=== PATIENT | male | born 1965 | race African-American/Black ===

== ENCOUNTER 2017-11-11 02:25 | Emergency (ER) | payer SELFPAY ==
[2017-11-11] MEDS ORDERED: AMOXICILLIN TR/POT CLAVULANATE 500-125 MG TAB PO ONE (04:15)
--- NOTE | 2017-11-11 04:21 | ER Document Report ---
ED General - General Time Seen by Provider: 11/11/17 03:56 Mode of Arrival: Ambulatory Information source: Patient - HPI Notes: Patient is a 51-year-old smoker presents with a 3 day history of pharyngitis and mild hoarseness. The patient has slight pain when he swallows but denies any difficulty swallowing. The patient reports no chest pain or difficulty breathing. He denies any fever or chills. He reports a mild smoker's cough. He denies any neck stiffness. The patient questions some allergic response related to bedbugs which bit him on the arms 3 days ago, but he states he itching on the arms is improved. He denies any toothache. Past Medical History - General Information source: Patient - Social History Smoking Status: Current Every Day Smoker Frequency of alcohol use: None Drug Abuse: None Lives with: Family Family History: Reviewed & Not Pertinent Review of Systems - Review of Systems Notes: REVIEW OF SYSTEMS: CONSTITUTIONAL : Denies fever, chills, or sweats. Denies recent illness. EENT: Denies eye, ear, or mouth pain or symptoms. Denies nasal or sinus congestion or discharge. Denies throat, tongue, or mouth swelling or difficulty swallowing. Mild pain with swallowing. CARDIOVASCULAR: Denies chest pain. Denies palpitations or racing or irregular heart beat. Denies ankle edema. RESPIRATORY: Denies shortness of breath, difficulty breathing, or wheezing. GASTROINTESTINAL: Denies abdominal pain or distention. Denies nausea, vomiting , or diarrhea. Denies blood in vomitus, stools, or per rectum. Denies black, tarry stools. Denies constipation. GENITOURINARY: Denies difficulty urinating, painful urination, burning, frequency, blood in urine, or discharge. MUSCULOSKELETAL: Denies back or neck pain or stiffness. Denies joint pain or swelling. SKIN: Denies rash, lesions or sores. HEMATOLOGIC : Denies easy bruising or bleeding. LYMPHATIC: Denies swollen, enlarged glands. NEUROLOGICAL: Denies confusion or altered mental status. Denies passing out or loss of consciousness. Denies dizziness or lightheadedness. Denies headache. Denies weakness or paralysis or loss of use of either side. Denies problems with gait or speech. Denies sensory loss, numbness, or tingling. Denies seizures. PSYCHIATRIC: Denies anxiety or stress. Denies depression, suicidal ideation, or homicidal ideation. ALL OTHER SYSTEMS REVIEWED AND NEGATIVE. Dictation was performed using [employer] voice recognition software Physical Exam - Notes Notes: PHYSICAL EXAMINATION: GENERAL: Well-appearing, well-nourished and in no acute distress. HEAD: Atraumatic, normocephalic. EYES: Pupils equal round and reactive to light, extraocular movements intact, sclera anicteric, conjunctiva are normal. ENT: Nares patent, oropharynx without exudates. Moist mucous membranes. Mild tonsillar erythema. No abscess. Posterior pharynx otherwise clear. No edema or uvular enlargement. NECK: Normal range of motion, supple without lymphadenopathy. Trachea midline. LUNGS: Breath sounds clear to auscultation bilaterally and equal. No wheezes rales or rhonchi. HEART: Regular rate and rhythm without murmurs ABDOMEN: Soft, nontender, nondistended abdomen. No guarding, no rebound. No masses appreciated. Musculoskeletal: Normal range of motion, no pitting or edema. No cyanosis. NEUROLOGICAL: Cranial nerves grossly intact. Normal speech, normal gait. Normal sensory, motor exams PSYCH: Normal mood, normal affect. SKIN: Warm, Dry, normal turgor. minimal dermatitis noted on the arms. No cellulitis or abscess. Course - Re-evaluation Re-evalutation: 11/11/17 05:54 Soft tissue neck was negative. Strep test was negative. No evidence for abscess or epiglottitis. Patient was advised he may need a upper laryngeal pharyngoscopy to evaluate for possible lesions on the larynx and vocal cords if the discomfort persists, given his history of smoking. Patient had symptomatic relief related to Benadryl Pepcid and prednisone. We will also cover the patient with Augmentin for possible infectious etiology, although strep was negative. Discharge - Discharge Clinical Impression: Pharyngitis Qualifiers: Pharyngitis/tonsillitis etiology: unspecified etiology Qualified Code(s): J02.9 - Acute pharyngitis, unspecified Condition: Stable Disposition: HOME, SELF-CARE Instructions: Sore Throat ([facility]) Additional Instructions: Drink plenty of fluids. Take benadryl as directed for any itching and swelling. If sore throat continues, then you need a ENT Physician and have upper laryngopharyngoscopy with a camera performed. Prescriptions: Amox Tr/Potassium Clavulanate [Augmentin 875-125 Tablet] 1 tab PO BID 8 Days tablet Prednisone [Deltasone 10 mg Tablet] 10 mg PO ASDIR PRN #21 tablet PRN Reason:
--- NOTE | 2017-11-11 05:05 | RADIOLOGY REPORT (SQ) ---
EXAM DESCRIPTION: SOFT TISSUE NECK CLINICAL HISTORY: 51 years, Male, Soar throat. COMPARISON: None. NUMBER OF VIEWS: 2 LIMITATIONS: None. FINDINGS: Patent nasopharynx. Normal epiglottic silhouette. Mild disc desiccation between the C4 and C6 levels. IMPRESSION: No acute findings.
== END 2017-11-11 04:37 | disposition home or self-care (01) ==
LOC: ER 02:25
DX: J02.9 Acute pharyngitis, unspecified (principal); F17.200 Nicotine dependence, unspecified, uncomplicated
CPT/HCPCS: 70360; 87070; 87880; 99283

== ENCOUNTER 2017-11-26 10:44 | Inpatient (IN) | payer SELFPAY ==
[2017-11-26] MEDS ORDERED: ACETAMINOPHEN 325 MG TABLET PO ONE (11:28)
[2017-11-26] MEDS ORDERED: NORMAL SALINE 1000 ML 1,000 ML IV ONE (11:28)
[2017-11-26] MEDS ORDERED: PIPERACILLIN/TAZOBACTAM 4.5 GM VIAL IV ONE (11:28)
--- NOTE | 2017-11-26 11:30 | ER Document Report ---
ED Medical Screen (RME) - General Chief Complaint: Abdominal Pain Stated Complaint: COUGH Time Seen by Provider: 11/26/17 11:25 Notes: Patient states he has a history of hepatitis C as well as leukopenia. He states that he has had a cough and fever. Fever triage was 103 Fahrenheit. TRAVEL OUTSIDE OF THE [place] IN LAST 30 DAYS: No - Related Data Allergies/Adverse Reactions: No Known Allergies Allergy (Unverified 11/26/17 10:46) Past Medical History - Social History Chew tobacco use (# tins/day): No Frequency of alcohol use: None Drug Abuse: None Renal/ Medical History: Denies: Hx Peritoneal Dialysis Physical Exam - Vital signs Vitals: Temp Pulse Resp BP Pulse Ox 103.0 F H 96 24 H 131/64 H 96 11/26/17 11:07 11/26/17 11:07 11/26/17 11:07 11/26/17 11:07 11/26/17 11:07 Course - Vital Signs Vital signs: Temp Pulse Resp BP Pulse Ox 103.0 F H 96 24 H 131/64 H 96 11/26/17 11:07 11/26/17 11:07 11/26/17 11:07 11/26/17 11:07 11/26/17 11:07
--- NOTE | 2017-11-26 12:24 | RADIOLOGY REPORT (SQ) ---
EXAM DESCRIPTION: CHEST 2 VIEWS COMPLETED DATE/TIME: 11/26/2017 12:14 pm REASON FOR STUDY: cough/fever COMPARISON: None. EXAM PARAMETERS: NUMBER OF VIEWS: two views TECHNIQUE: Digital Frontal and Lateral radiographic views of the chest acquired. RADIATION DOSE: NA LIMITATIONS: none FINDINGS: LUNGS AND PLEURA: Right upper lobe infiltrate. Left lung clear. No pleural effusion. No pneumothorax. MEDIASTINUM AND HILAR STRUCTURES: No masses or contour abnormalities. HEART AND VASCULAR STRUCTURES: Heart normal size. No evidence for failure. BONES: No acute findings. HARDWARE: None in the chest. OTHER: No other significant finding. IMPRESSION: RIGHT UPPER LOBE INFILTRATE CONSISTENT WITH PNEUMONIA. TECHNICAL DOCUMENTATION: JOB ID: [id number] [employer]- All Rights Reserved Reading location - IP/workstation name: [email or web address]
[2017-11-26] MEDS ORDERED: IPRATROPIUM/ALBUTEROL 0.5-2.5 MG/3 ML AMPUL NEB ONE (12:28)
--- NOTE | 2017-11-26 12:29 | ER Document Report ---
ED General - General Chief Complaint: Abdominal Pain Stated Complaint: COUGH Time Seen by Provider: 11/26/17 11:25 Mode of Arrival: Ambulatory Information source: Patient, Relative - TRAVEL OUTSIDE OF THE [place] IN LAST 30 DAYS: No - HPI Notes: 51-year-old male with a history of hepatitis C presents today with complaints of a fever, nausea vomiting, diarrhea and right upper chest wall pain that started 2 days ago. Patient reports that he is here to [place], only moved here 2 weeks ago. Patient does not follow with a primary care provider. That time, nothing makes better. Has not tried any [id number] medications. Patient states he had a similar episode roughly 5 years ago when he was in [place], states that his "white count was low and he required some IV antibiotics to get him back to baseline". Drinking but reports decreased appetite. Denies any coffee-ground emesis or melena. denies fevers, chills, chest pain,palpitations, shortness of breath, dyspnea, nausea, vomiting, diarrhea, abdominal pain, hematuria,blurred vision, double vision, loss of vision, speech changes, LH, dizziness, syncope, headaches, wheezing, ST , URI, neck pain, weakness, bowel or bladder dysfunction, saddle anesthesia, numbness or tingling in bilateral upper or lower extremities equally, muscle paralysis, weakness in bilateral upper or lower extremities equally or rash. Denies IV drug use. - Related Data Allergies/Adverse Reactions: No Known Allergies Allergy (Unverified 11/26/17 10:46) Past Medical History - General Information source: Patient - Social History Smoking Status: Current Every Day Smoker Chew tobacco use (# tins/day): No Frequency of alcohol use: None Drug Abuse: None Family History: Reviewed & Not Pertinent Patient has suicidal ideation: No Patient has homicidal ideation: No Renal/ Medical History: Denies: Hx Peritoneal Dialysis Review of Systems - Review of Systems Notes: REVIEW OF SYSTEMS: CONSTITUTIONAL : +fever, chills, or sweats. Denies recent illness. EENT: Denies eye, ear, throat, or mouth pain or symptoms. Denies nasal or sinus congestion or discharge. Denies throat, tongue, or mouth swelling or difficulty swallowing. CARDIOVASCULAR: Denies chest pain. Denies palpitations or racing or irregular heart beat. Denies ankle edema. RESPIRATORY: Denies cough, cold, or chest congestion. Denies shortness of breath, difficulty breathing, or wheezing. GASTROINTESTINAL: Denies abdominal pain or distention. Reports nausea, vomiting, or diarrhea. Denies blood in vomitus, stools, or per rectum. Denies black, tarry stools. Denies constipation. GENITOURINARY: Denies difficulty urinating, painful urination, burning, frequency, blood in urine, or discharge. MUSCULOSKELETAL: Denies back or neck pain or stiffness. Denies joint pain or swelling. SKIN: Denies rash, lesions or sores. HEMATOLOGIC : Denies easy bruising or bleeding. LYMPHATIC: Denies swollen, enlarged glands. NEUROLOGICAL: Denies confusion or altered mental status. Denies passing out or loss of consciousness. Denies dizziness or lightheadedness. Denies headache. Denies weakness or paralysis or loss of use of either side. Denies problems with gait or speech. Denies sensory loss, numbness, or tingling. Denies seizures. PSYCHIATRIC: Denies anxiety or stress. Denies depression, suicidal ideation, or homicidal ideation. ALL OTHER SYSTEMS REVIEWED AND NEGATIVE. Dictation was performed using [employer] voice recognition software PHYSICAL EXAMINATION: GENERAL: Well-appearing, well-nourished and in no acute distress. HEAD: Atraumatic, normocephalic. EYES: Pupils equal round and reactive to light, extraocular movements intact, sclera anicteric, conjunctiva are normal. ENT: Nares patent, oropharynx clear without exudates. Moist mucous membranes. NECK: Normal range of motion, supple without lymphadenopathy LUNGS: Breath sounds clear to auscultation bilaterally and equal. No wheezes rales or rhonchi. HEART: Regular rate and rhythm without murmurs ABDOMEN: Soft, nondistended abdomen. Generalized abdominal pain. no guarding, no rebound. No masses appreciated. No CVA tenderness appreciated bilaterally Musculoskeletal: Normal range of motion, no pitting or edema. No cyanosis. NEUROLOGICAL: Cranial nerves grossly intact. Normal speech, normal gait. Normal sensory, motor exams PSYCH: Normal mood, normal affect. SKIN: Warm, Dry, normal turgor, no rashes or lesions noted. Physical Exam - Vital signs Vitals: Temp Pulse Resp BP Pulse Ox 103.0 F H 96 24 H 131/64 H 96 11/26/17 11:07 11/26/17 11:07 11/26/17 11:07 11/26/17 11:07 11/26/17 11:07 Course - Re-evaluation Re-evalutation: 11/26/17 19:09 51-year-old male presents today with complaints of fever with GI symptoms. Patient's CBC showed a neutropenia 0.8 with anemia, CMP negative for renal or hepatic dysfunction, no electrolyte disturbances noted. Chest x-ray showed urinalysis negative unremarkable. Cardiac enzymes unremarkable, EKG negative for STEMI, nonspecific ST segment findings. Patient given verbal consent to check for HIV due to sudden onset neutropenia. Patient denies any history of cancer or leukocytosis. CT abdomen pelvis with IV contrast shows the patient has splenomegaly, no hepatomegaly noted. CMP negative for any hepatic impairment renal impairment. Electrolytes do not show any disturbances. Urinalysis with slight hematuria. Patient adamantly denies any IV drug use. Patient states he acquired hepatitis C from a plasma transfusion "many years ago ". Currently unsure of reason for neutropenia at this time, ABG ordered to assess the patient needs steroids. Broad-spectrum antibiotics given the IV. Fever reduced to 98.6 on reevaluation, vitals stable. Patient is not in any distress and in a good mood consulted with Dr. Caroline Alexander, attending hospitalist regarding pertinent laboratory, diagnostic and clinical findings. Initially refused admission due to the fact patient had hepatitis C with neutropenia due to gastroenterology not being transportation manager today. Consulted with Dr. Elizabeth Talbert, rolloff truck driver, who states that the hospital is capable of admitting neutropenia with fever. Consulted with Dr. Lyla Zavala, ER attending regarding refusal for admission. She denies being to discuss case again with the hospitalist since his hospital had full capabilities admit inpatient. Consulted with Dr. Caroline Alexander again, who did review case herself, did accept patient was accepted by Dr. Colton Bazzi, hospitalist to medical floor for IV antibiotics with Dr. Talbert consulting. - Vital Signs Vital signs: Temp Pulse Resp BP Pulse Ox 103.0 F H 96 24 H 131/64 H 96 11/26/17 11:07 11/26/17 11:07 11/26/17 11:07 11/26/17 11:07 11/26/17 11:07 - Laboratory Result Diagrams: 11/26/17 13:30 11/26/17 13:30 Laboratory results interpreted by me: 11/26/17 11/26/17 11/26/17 11:52 13:30 13:30 WBC 0.8 L* RBC 3.22 L Hgb 8.8 L Hct 25.0 L MCV 77 L RDW 16.5 H Plt Count 137 L Seg Neutrophils % 17.1 L Monocytes % 36.4 H Absolute Neutrophils 0.1 L Absolute Lymphocytes 0.4 L VBG pH VBG pCO2 Sodium 135.6 L Glucose 111 H Total Protein 6.2 L Albumin 2.9 L Urine Blood SMALL H Urine Urobilinogen 4.0 H 11/26/17 13:30 WBC RBC Hgb Hct MCV RDW Plt Count Seg Neutrophils % Monocytes % Absolute Neutrophils Absolute Lymphocytes VBG pH 7.48 H VBG pCO2 29.8 L Sodium Glucose Total Protein Albumin Urine Blood Urine Urobilinogen - EKG Interpretation by Me EKG shows normal: Sinus rhythm Rate: Normal Rhythm: NSR - bmp 80 When compared to previous EKG there are: Previous EKG unavailable Discharge - Discharge Clinical Impression: Neutropenia, Right upper lobe pneumonia, Splenomegaly Condition: Good Disposition: ADMITTED INPATIENT Admitting Provider: Hospitalist - Dr. Bazzi Unit Admitted: Medical Floor
[2017-11-26 13:45] LABS: VENOUS BLOOD BASE EXCESS -0.6 mmol/L; VENOUS BLOOD HCO3 21.8 mmol/L (20-32); VENOUS BLOOD PCO2 29.8 mmHg (35-63); VENOUS BLOOD PH 7.48 (7.30-7.42)
[2017-11-26 13:49] LABS: ABSOLUTE LYMPHOCYTES (AUTO) 0.4 10^3/uL (0.5-4.7); ABSOLUTE MONOCYTES (AUTO) 0.3 10^3/uL (0.1-1.4); ABSOLUTE NEUT (AUTO) 0.1 10^3/uL (1.7-8.2); BASOPHILS % (AUTO) 0.6 % (0-2); EOSINOPHILS % (AUTO) 3.9 % (0-6); HEMOGLOBIN 8.8 g/dL (13.5-17.0); MEAN CORPUSCULAR HEMOGLOBIN 27.2 pg (27.0-33.4); MEAN CORPUSCULAR HGB CONC 35.1 g/dL (32.0-36.0); MEAN CORPUSCULAR VOLUME 77 fl (80-97); MONOCYTES % (AUTO) 36.4 % (3-13); PLATELET COUNT 137 10^3/uL (150-450); RED BLOOD COUNT 3.22 10^6/uL (4.35-5.55); RED CELL DISTRIBUTION WIDTH 16.5 % (11.5-14.0); SEGMENTED NEUTROPHILS % (AUTO) 17.1 % (42-78); TOTAL CELLS COUNTED % (AUTO) 100 %
[2017-11-26 14:00] LABS: WHITE BLOOD COUNT 0.8 10^3/uL (4.0-10.5)
[2017-11-26 14:04] LABS: ALANINE AMINOTRANSFERASE 32 U/L (21-72); ALBUMIN 2.9 g/dL (3.5-5.0); ALKALINE PHOSPHATASE 50 U/L (38-126); ANION GAP 9 (5-19); ASPARTATE AMINO TRANSFERASE 22 U/L (17-59); BILIRUBIN,DIRECT 0.1 mg/dL (0.0-0.4); BILIRUBIN,TOTAL 0.3 mg/dL (0.2-1.3); BLOOD UREA NITROGEN 10 mg/dL (7-20); CALCIUM 8.5 mg/dL (8.4-10.2); CARBON DIOXIDE 22 mmol/L (22-30); CHLORIDE 105 mmol/L (98-107); GLUCOSE 111 mg/dL (75-110); POTASSIUM 3.8 mmol/L (3.6-5.0); SODIUM 135.6 mmol/L (137-145); TOTAL PROTEIN 6.2 g/dL (6.3-8.2)
[2017-11-26 14:09] LABS: ANISOCYTOSIS 1+; HYPOCHROMASIA SLIGHT; PLATELET COMMENT DECREASED; POIKILOCYTOSIS 1+; TEAR DROP CELLS 1+
[2017-11-26 14:26] LABS: APPEARANCE,URINE TURBID; BILIRUBIN,URINE NEGATIVE (NEGATIVE); COLOR,URINE YELLOW; GLUCOSE, URINE NEGATIVE (NEGATIVE); KETONES,URINE NEGATIVE (NEGATIVE); LEUKOCYTE ESTERASE,URINE NEGATIVE (NEGATIVE); NITRITE,URINE NEGATIVE (NEGATIVE); PROTEIN,URINE NEGATIVE (NEGATIVE); URINE SPECIFIC GRAVITY 1.021
[2017-11-26] MEDS ORDERED: VANCOMYCIN HCL INJ 1000 MG VIAL IV ONE (14:41)
[2017-11-26 15:27] LABS: CREATINE KINASE MB 0.42 ng/mL (<4.55)
[2017-11-26 15:29] LABS: TROPONIN I < 0.012 ng/mL
[2017-11-26] MEDS ORDERED: SULFAMETHOXAZOLE/TRIMETHOPRIM 800-160 MG TABLET PO ONE (15:38)
--- NOTE | 2017-11-26 16:20 | RADIOLOGY REPORT (SQ) ---
EXAM DESCRIPTION: CT ABD/PELVIS WITH IV ONLY COMPLETED DATE/TIME: 11/26/2017 4:01 pm REASON FOR STUDY: LUQ and RUQ abd pain, +fever COMPARISON: None. TECHNIQUE: CT scan of the abdomen and pelvis performed using helical scanning technique with dynamic intravenous contrast injection. No oral contrast. Images reviewed with lung, soft tissue, and bone windows. Reconstructed coronal and sagittal MPR images reviewed. Delayed images for evaluation of the urinary system also acquired. All images stored on PACS. All CT scanners at this facility use dose modulation, iterative reconstruction, and/or weight based d osing when appropriate to reduce radiation dose to as low as reasonably achievable (ALARA). [facility]: Dose Right [facility]: CareDose [facility]: Dose Right [facility]: Teradose 4D [facility]: Lynk CONTRAST TYPE AND DOSE: contrast/concentration: Isovue 370.00 mg/ml; Total Contrast Delivered: 79.0 ml; Total Saline Delivered: 43.0 ml RENAL FUNCTION: BUN 10 creatinine 0.6. RADIATION DOSE: CT Rad equipment meets quality standard of care and radiation dose reduction techniq ues were employed. CTDIvol: 5.4 - 6.7 mGy. DLP: 674 mGy-cm.. LIMITATIONS: None. FINDINGS: LOWER CHEST: 3 mm nodule in the right lower lobe. LIVER: Normal size. No masses. No dilated ducts. SPLEEN: Splenomegaly. Craniocaudal measurement 18 cm and AP measurement 17 cm. No focal lesions. PANCREAS: No masses. No significant calcifications. No adjacent inflammation or peripancreatic fluid collections. Pancreatic duct not dilated. GALLBLADDER: No identified stones by CT criteria. No inflammatory changes to suggest cholecystitis. ADRENAL GLANDS: No significant masses or asymmetry. RIGHT KIDNEY AND URETER: No solid masses. No significant calcifications. No hydronephrosis or hyd roureter. LEFT KIDNEY AND URETER: No solid masses. No significant calcifications. No hydronephrosis or hydr oureter. AORTA AND VESSELS: No aneurysm. No dissection. Renal arteries, SMA, celiac without stenosis. RETROPERITONEUM: No retroperitoneal adenopathy, hemorrhage or masses. BOWEL AND PERITONEAL CAVITY: No masses or inflammatory changes. No free fluid or peritoneal masses. APPENDIX: Normal. PELVIS: No mass. No free fluid. Normal bladder. ABDOMINAL WALL: No masses. No hernias. BONES: No significant or acute findings. OTHER: No other significant finding. IMPRESSION: 1. MARKED SPLENOMEGALY. NO FOCAL LESIONS. NO OTHER SIGNIFICANT OR ACUTE FINDING IN THE ABDOMEN OR P MAHNAZ ON CT SCAN WITH IV CONTRAST. 2. 3 MM NODULE IN THE RIGHT LOWER LOBE. FOLLOW-UP CLINICALLY INDICATED. COMMENT: [place] CRITERIA FOR FOLLOW-UP OF PULMONARY NODULES Incidentally detected new nodules in persons 35 or older. HIGH RISK: History of smoking or other known risk factors. <6mm single solid nodule: LOW RISK: no routine followup. HIGH RISK: optional CT 12 mo. TECHNICAL DOCUMENTATION: JOB ID: [id number] Quality ID # [id number]: Final reports with documentation of one or more dose reduction techniques (e.g., Au tomated exposure control, adjustment of the mA and/or kV according to patient size, use of iterative reconstruction technique) 2010 [employer]- All Rights Reserved Reading location - IP/workstation name: [email or web address]
[2017-11-26] MEDS ORDERED: ONDANSETRON HCL INJ/PF 4 MG/2 ML SDV IV PRN (18:11)
[2017-11-26] MEDS ORDERED: IPRATROPIUM/ALBUTEROL 0.5-2.5 MG/3 ML AMPUL NEB PRN (18:11)
[2017-11-26] MEDS ORDERED: VANCOMYCIN HCL 0 MG in DEXTROSE 5%-WATER 250 ML IV NR (18:15)
--- NOTE | 2017-11-26 18:37 | PDOC H&P ---
History of Present Illness Admission Date/PCP: 11/26/17 17:44 Patient complains of: Cough and fever for 4 days History of Present Illness: MARY SCHROEDER is a 51 year old male with a known past history of hepatitis C untreated Presented to the ED with a four-day history of fever chills night sweats Upon evaluation in the ED patient was diagnosed of severe neutropenia with a white blood count of 0.8 and ANC of 13; Chest x-ray showed a right upper lobe infiltrate Patient in the ED was treated with vancomycin and Zosyn and Bactrim Hospitalist hospitalist service was called for admission Past Medical History GI Medical History: Reports: Hepatitis - Hepatitis C Hematology: Reports: Neutropenia Infectious Medical History: Reports: Hepatitis C Past Surgical History Past Surgical History: Reports: None Social History Smoking Status: Current Every Day Smoker - Advance Directive Resuscitation Status: Full Code Surrogate healthcare decision maker:: Family History Family History: None, Reviewed & Not Pertinent Parental Family History Reviewed: Yes Children Family History Reviewed: Yes Sibling(s) Family History Reviewed.: Yes Medication/Allergy Home Medications: No Home Medications 11/26/17 Allergies/Adverse Reactions: No Known Allergies Allergy (Unverified 11/26/17 10:46) Review of Systems Constitutional: PRESENT: as per HPI, chills, fatigue, fever(s), night sweats, weakness Eyes: ABSENT: visual disturbances Ears: ABSENT: hearing changes Cardiovascular: ABSENT: chest pain, dyspnea on exertion, edema, orthropnea, palpitations Respiratory: PRESENT: as per HPI, cough, sputum Gastrointestinal: ABSENT: abdominal pain, constipation, diarrhea, hematemesis, hematochezia, nausea, vomiting Genitourinary: ABSENT: dysuria, hematuria Musculoskeletal: ABSENT: joint swelling Integumentary: ABSENT: rash, wounds Neurological: ABSENT: abnormal gait, abnormal speech, confusion, dizziness, focal weakness, syncope Psychiatric: ABSENT: anxiety, depression, homidical ideation, suicidal ideation Endocrine: ABSENT: cold intolerance, heat intolerance, polydipsia, polyuria Hematologic/Lymphatic: ABSENT: easy bleeding, easy bruising Allergic/Immunologic: ABSENT: as per HPI, seasonal rhinorrhea, other Physical Exam Vital Signs: Temp Pulse Resp BP Pulse Ox 103.0 F H 96 24 H 131/64 H 96 11/26/17 11:07 11/26/17 11:07 11/26/17 11:07 11/26/17 11:07 11/26/17 11:07 General appearance: PRESENT: no acute distress, thin, well-developed Head exam: PRESENT: atraumatic, normocephalic Eye exam: PRESENT: conjunctiva pink, EOMI, PERRLA. ABSENT: scleral icterus Ear exam: PRESENT: normal external ear exam Neck exam: ABSENT: carotid bruit, JVD, lymphadenopathy, thyromegaly Respiratory exam: PRESENT: clear to auscultation matias Cardiovascular exam: PRESENT: RRR. ABSENT: diastolic murmur, rubs, systolic murmur Pulses: PRESENT: normal dorsalis pedis pul Vascular exam: PRESENT: normal capillary refill GI/Abdominal exam: PRESENT: organolmegaly - spleen palpable below left costal margin Rectal exam: PRESENT: deferred Extremities exam: PRESENT: full ROM. ABSENT: calf tenderness, clubbing, pedal edema Musculoskeletal exam: ABSENT: ambulatory, deformity, dislocation, full ROM, normal inspection, tenderness, other Neurological exam: PRESENT: alert, awake, oriented to person, oriented to place , oriented to time, oriented to situation, CN II-XII grossly intact. ABSENT: motor sensory deficit Psychiatric exam: PRESENT: appropriate affect, normal mood Skin exam: PRESENT: dry, intact, warm. ABSENT: cyanosis, rash Results Laboratory Results: 11/11/17 11/26/17 11/26/17 03:20 13:30 13:30 WBC 0.8 L* Hgb 8.8 L Hct 25.0 L Plt Count 137 L Seg Neutrophils % 17.1 L Sodium 135.6 L Potassium 3.8 Chloride 105 Carbon Dioxide 22 BUN 10 Creatinine 0.60 Lactic Acid AST 22 ALT 32 Alkaline Phosphatase 50 Troponin I Lipase HIV 1&2 Antibody Group A Strep Rapid NEGATIVE 11/26/17 11/26/17 11/26/17 13:30 13:30 13:30 WBC Hgb Hct Plt Count Seg Neutrophils % Sodium Potassium Chloride Carbon Dioxide BUN Creatinine Lactic Acid AST ALT Alkaline Phosphatase Troponin I < 0.012 Lipase 46.1 HIV 1&2 Antibody NEGATIVE Group A Strep Rapid 11/26/17 14:46 WBC Hgb Hct Plt Count Seg Neutrophils % Sodium Potassium Chloride Carbon Dioxide BUN Creatinine Lactic Acid 0.9 AST ALT Alkaline Phosphatase Troponin I Lipase HIV 1&2 Antibody Group A Strep Rapid Impressions: Chest X-Ray 11/26/17 11:28 IMPRESSION: RIGHT UPPER LOBE INFILTRATE CONSISTENT WITH PNEUMONIA. Abdomen/Pelvis CT 11/26/17 14:54 IMPRESSION: 1. MARKED SPLENOMEGALY. NO FOCAL LESIONS. NO OTHER SIGNIFICANT OR ACUTE FINDING IN THE ABDOMEN OR PELVIS ON CT SCAN WITH IV CONTRAST. 2. 3 MM NODULE IN THE RIGHT LOWER LOBE. FOLLOW-UP CLINICALLY INDICATED. Assessment & Plan - Diagnosis (1) Pancytopenia Is this a current diagnosis for this admission?: Yes (2) Splenomegaly Is this a current diagnosis for this admission?: Yes (3) Hx of hepatitis C Is this a current diagnosis for this admission?: Yes (4) Neutropenia Is this a current diagnosis for this admission?: Yes (5) Right upper lobe pneumonia Is this a current diagnosis for this admission?: Yes - Time Time Spent with patient: Patient will be placed on neutropenic precautions Treatment with cefepime and vancomycin was initiated Dr. Thompson hematology consult will see the patient in a.m. Mechanical DVT prophylaxis was ordered We will hold Lovenox as the platelet count is only 130 Time Spent: 50 to 70 Minutes - Inpatient Certification Based on my medical assessment, after consideration of the patient's comorbidities, presenting symptoms, or acuity I expect that the services needed warrant INPATIENT care.: Yes I certify that my determination is in accordance with my understanding of Medicare's requirements for reasonable and necessary INPATIENT services [42 CFR 412.3e].: Yes Medical Necessity: Need For IV Fluids, Need for IV Antibiotics
[2017-11-26] MEDS: ACETAMINOPHEN 325 MG TABLET PO PRN (19:57)
[2017-11-26] MEDS ORDERED: VANCOMYCIN HCL 1,250 MG in DEXTROSE 5%-WATER 250 ML IV SCH ×2 (20:00→22:00)
[2017-11-26] MEDS: NORMAL SALINE 1000 ML 1,000 ML IV PRN (20:55)
--- NOTE | 2017-11-26 21:08 | EKG REPORT ---
SEVERITY:- NORMAL ECG - SINUS RHYTHM : Confirmed by: Gurmeet Noble 26-Nov-2017 21:07:30
[2017-11-26 21:31] LABS: ARTERIAL BLOOD BASE EXCESS -1.6 mmol/L; ARTERIAL BLOOD HCO3 21.1 mmol/L (20-26); ARTERIAL BLOOD O2 SATURATION 83.2 % (94-98); ARTERIAL BLOOD PCO2 29.9 mmHg (35-45); ARTERIAL BLOOD PH 7.47 (7.35-7.45); ARTERIAL BLOOD PO2 43.7 mmHg (80-100)
[2017-11-26 21:32] LABS: ARTERIAL BLOOD FIO2 21%
[2017-11-26] MEDS ORDERED: CEFEPIME 2 GM/D5W RTU 2 GM/50 ML RTUPB IV SCH (22:00)
[2017-11-26] MEDS ORDERED: VANCOMYCIN HCL 1,250 MG in DEXTROSE 5%-WATER 250 ML IV ONE (22:00)
[2017-11-26] MEDS: FAMOTIDINE 20 MG TABLET PO SCH (22:05)
[2017-11-26] MEDS: CEFEPIME HCL 2 GM in NORMAL SALINE 100 ML IV SCH (22:05)
[2017-11-27] MEDS: VANCOMYCIN HCL 1,250 MG in DEXTROSE 5%-WATER 250 ML IV SCH ×3 (03:11→21:00)
[2017-11-27 05:04] LABS: ABSOLUTE RETICS # 0.043 10^6/uL (0.028-0.122); HEMATOCRIT 23.8 % (37.9-51.0); HEMOGLOBIN 8.3 g/dL (13.5-17.0); MEAN CORPUSCULAR HGB CONC 34.9 g/dL (32.0-36.0); MEAN CORPUSCULAR VOLUME 77 fl (80-97); PLATELET COUNT 132 10^3/uL (150-450); RED BLOOD COUNT 3.07 10^6/uL (4.35-5.55); RED CELL DISTRIBUTION WIDTH 16.4 % (11.5-14.0); RETICULOCYTE COUNT (AUTO) 1.41 % (0.66-2.85)
[2017-11-27 05:33] LABS: FREE T4 (FREE THYROXINE) 1.27 ng/dL (0.78-2.19)
[2017-11-27 05:46] LABS: THYROID STIMULATING HORMONE 2.2 uIU/mL (0.47-4.68)
[2017-11-27 05:52] LABS: ABSOLUTE LYMPHOCYTES# (MANUAL) 0.2 10^3/uL (0.5-4.7); ABSOLUTE MONOCYTES # (MANUAL) 0.3 10^3/uL (0.1-1.4); ABSOLUTE NEUTROPHILS# (MANUAL) 0.1 10^3/uL (1.7-8.2); BAND NEUTROPHILS % (MANUAL) 6 % (3-5); BASOPHILS % (MANUAL) 0 % (0-2); EOSINOPHILS % (MANUAL) 10 % (0-6); LYMPHOCYTES % (MANUAL) 34 % (13-45); SEGMENTED NEUTROPHILS % (MAN) 4 % (42-78); TOTAL CELLS COUNTED 50
[2017-11-27 05:55] LABS: PLATELET CLUMPS PRESENT; PLATELET COMMENT DECREASED
[2017-11-27 05:57] LABS: ANISOCYTOSIS 1+; HYPOCHROMASIA 1+; POLYCHROMASIA SLIGHT
[2017-11-27 06:00] LABS: MONOCYTES % (MANUAL) 46 % (3-13)
[2017-11-27 06:26] LABS: IRON(TIBC) < 10.1 ug/dL (49-181)
[2017-11-27 06:45] LABS: WHITE BLOOD COUNT 0.7 10^3/uL (4.0-10.5)
--- NOTE | 2017-11-27 08:37 | PDOC CONSULTATION ---
Consultation Consult Date: 11/27/17 Consult reason:: Hematology/Oncology consultation was requested for patient with pancytopenia and neutropenic fever History of Present Illness Admission Date/PCP: 11/26/17 17:44 History of Present Illness: MARY SCHROEDER is a 51 year old male who states that he has had neutropenia since he was diagnosed with HCV 20 years ago. He is unsure what his baseline WBC is, but states that he underwent bone marrow biopsy about 2 years ago for the same. He is unsure what was found on the bone marrow, but it left him with a large lump in his hip. He has never had pneumonia before. He would like to be treated for his HCV, but states that he cannot afford it. He has recently re -located here from [place]. He has not established with any physicians in the area and states that he is unsure what type of HCV he has or if it can be treated with the medication. He presented to the ED after a 4 day history of drenching night sweats and cough. He has some chest pain and dyspnea. He has had similar episodes before and states that he can tell when "his hepatitis is acting up." Today, he states that he feels no better since being admitted. He is having bone pain and feels better when he is up walking around. He is getting hungry during the day and needs to eat a snack. Past Medical History GI Medical History: Reports: Hepatitis - Hepatitis C Hematology: Reports: Neutropenia Infectious Medical History: Reports: Hepatitis C Past Surgical History Past Surgical History: Reports: None Social History Information Source: Patient Lives with: Spouse/Significant other Smoking Status: Current Every Day Smoker Cigarettes Packs Per Day: 1 Number of Years Smokin Last Time Smoked: 11/25/17 Frequency of Alcohol Use: None Hx Recreational Drug Use: No Drugs: None Hx Prescription Drug Abuse: No Past Social History Note: 5 kids. 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 - Advance Directive Resuscitation Status: Full Code Family History Parental Family History Reviewed: Yes - Mother healthy working in the . Father is unknwon Children Family History Reviewed: Yes Sibling(s) Family History Reviewed.: No Medication/Allergy Home Medications: No Home Medications 11/26/17 Allergies/Adverse Reactions: No Known Allergies Allergy (Unverified 11/26/17 10:46) Review of Systems Constitutional: PRESENT: chills, fever(s), night sweats Eyes: ABSENT: visual disturbances Ears: ABSENT: hearing changes Nose, Mouth, and Throat: PRESENT: sore throat Cardiovascular: PRESENT: chest pain, dyspnea on exertion Respiratory: PRESENT: cough, dyspnea. ABSENT: hemoptysis Gastrointestinal: ABSENT: constipation, diarrhea, nausea, vomiting Musculoskeletal: PRESENT: other - Bone pain Integumentary: ABSENT: rash Neurological: ABSENT: confusion, numbness, weakness Psychiatric: ABSENT: anxiety, depression Hematologic/Lymphatic: ABSENT: lymphadenopathy Physical Exam Vital Signs: Temp Pulse Resp BP Pulse Ox 99.0 F 92 19 113/62 100 11/27/17 07:39 11/27/17 07:39 11/27/17 07:39 11/27/17 07:39 11/27/17 07:39 Intake & Output 11/26/17 11/27/17 11/28/17 06:59 06:59 06:59 Intake Total 1480 Output Total 700 Balance 780 Weight 72.7 kg General appearance: PRESENT: no acute distress, thin Exam: 51 year old male. is at bedside. Head exam: PRESENT: atraumatic Eye exam: PRESENT: PERRLA Ear exam: PRESENT: normal external ear exam Mouth exam: PRESENT: tongue midline Neck exam: ABSENT: lymphadenopathy, tenderness Respiratory exam: PRESENT: clear to auscultation matias Cardiovascular exam: PRESENT: RRR. ABSENT: systolic murmur Pulses: PRESENT: normal dorsalis pedis pul GI/Abdominal exam: PRESENT: organolmegaly - Spleen tip palpable., soft. ABSENT : tenderness Extremities exam: ABSENT: pedal edema Musculoskeletal exam: PRESENT: other - Walks without difficulty. No obvious abnormalities. Neurological exam: PRESENT: alert, awake, oriented to person, oriented to place , oriented to time, oriented to situation, normal gait Psychiatric exam: PRESENT: appropriate affect Focused psych exam: ABSENT: paranoid, pressured speech Skin exam: PRESENT: other - Large lipoma over right lateral hip. Results Laboratory Results: 11/27/17 04:48 11/26/17 11/27/17 11/27/17 21:19 04:48 04:48 WBC 0.7 L* RBC 3.07 L Hgb 8.3 L Hct 23.8 L MCV 77 L MCH 27.0 MCHC 34.9 RDW 16.4 H Plt Count 132 L Seg Neutrophils % Not Reportable Lymphocytes % Not Reportable Monocytes % Not Reportable Eosinophils % Not Reportable Basophils % Not Reportable Absolute Neutrophils Not Reportable Absolute Lymphocytes Not Reportable Absolute Monocytes Not Reportable Absolute Eosinophils Not Reportable Absolute Basophils Not Reportable Retic Count (auto) 1.41 Absolute Retic 0.043 Carbonic Acid 0.90 L HCO3/H2CO3 Ratio 23:1 ABG pH 7.47 H ABG pCO2 29.9 L ABG pO2 43.7 L ABG HCO3 21.1 ABG O2 Saturation 83.2 L ABG Base Excess -1.6 FiO2 21% Iron < 10.1 L TIBC 194 L % Saturation UNABLE TO CALCULATE Ferritin 273.00 Vitamin B12 167.0 L Folate 13.40 TSH Free T4 11/27/17 04:48 WBC RBC Hgb Hct MCV MCH MCHC RDW Plt Count Seg Neutrophils % Lymphocytes % Monocytes % Eosinophils % Basophils % Absolute Neutrophils Absolute Lymphocytes Absolute Monocytes Absolute Eosinophils Absolute Basophils Retic Count (auto) Absolute Retic Carbonic Acid HCO3/H2CO3 Ratio ABG pH ABG pCO2 ABG pO2 ABG HCO3 ABG O2 Saturation ABG Base Excess FiO2 Iron TIBC % Saturation Ferritin Vitamin B12 Folate TSH 2.20 Free T4 1.27 Impressions: Chest X-Ray 11/26/17 11:28 IMPRESSION: RIGHT UPPER LOBE INFILTRATE CONSISTENT WITH PNEUMONIA. Abdomen/Pelvis CT 11/26/17 14:54 IMPRESSION: 1. MARKED SPLENOMEGALY. NO FOCAL LESIONS. NO OTHER SIGNIFICANT OR ACUTE FINDING IN THE ABDOMEN OR PELVIS ON CT SCAN WITH IV CONTRAST. 2. 3 MM NODULE IN THE RIGHT LOWER LOBE. FOLLOW-UP CLINICALLY INDICATED. Status: Image reviewed by me Assessment & Plan - Diagnosis (1) Pancytopenia Is this a current diagnosis for this admission?: Yes Plan: Most likely due to HCV as well as VIt B12 deficiency. Agree with neutropenic precautions. OK for Lovenox as long as PLT > 50K (2) Hx of hepatitis C Is this a current diagnosis for this admission?: Yes Plan: HIV was negative. Await Hepatitis panel. Consider consulting GI for further evaluation of this and possible treatment. Patient is interested to see if there is a sp available to help cover the cost of treatment. (3) Right upper lobe pneumonia Is this a current diagnosis for this admission?: Yes Plan: Agree with Cefapime. He needs to be afebrile for at least 48 hours and preferably with ANC >1.0. Await blood cultures. (4) Vitamin B12 deficiency Is this a current diagnosis for this admission?: Yes Plan: I will start B12 injections. Vit B 12 deficiency can cause pancytopenia. Hopefully replacing this will help. - Plan Summary Plan Summary: Thank you for this consultation. I will be happy to follow him with you. Please feel free to call with any concerns.
[2017-11-27] MEDS: CEFEPIME HCL 2 GM in NORMAL SALINE 100 ML IV SCH ×2 (09:59→23:06)
[2017-11-27] MEDS: FAMOTIDINE 20 MG TABLET PO SCH ×2 (09:59→21:01)
[2017-11-27] MEDS: CYANOCOBALAMIN (VITAMIN B-12) INJ 1000 MCG/1 ML VIAL IM SCH (09:59)
[2017-11-27] MEDS: ACETAMINOPHEN 325 MG TABLET PO PRN (11:28)
[2017-11-27 12:28] LABS: PATH REVIEW PATHOLOGIST REVIEWED
[2017-11-27 12:28] LABS: PATH REVIEW PATHOLOGIST REVIEWED
[2017-11-27] MEDS: NORMAL SALINE 1000 ML 1,000 ML IV PRN (17:46)
--- NOTE | 2017-11-27 17:56 | PDOC PROGRESS REPORT ---
Subjective Progress Note for:: 11/27/17 Subjective:: Patient is complaining of generalized weakness otherwise has no specific complaints patient was admitted yesterday with pancytopenia, fever and pneumonia Patient had mentioned yesterday that he had bone marrow biopsy done 2 years ago Call was placed to hospital in [place] to obtain records and results bone marrow biopsy It was never performed Patient states now that it may have been down when he was a child about 40 years ago... He is ambulating in the hallway and appears quite comfortable in no respiratory distress Reason For Visit: PNEUMONIA, NEUTROPENIA, PANCYTOPENIA Physical Exam Vital Signs: Temp Pulse Resp BP Pulse Ox 98.0 F 79 19 117/63 100 11/27/17 15:43 11/27/17 15:43 11/27/17 15:43 11/27/17 15:43 11/27/17 15:43 Intake & Output 11/26/17 11/27/17 11/28/17 00:59 00:59 00:59 Intake Total 1240 861 Output Total 350 350 Balance 890 511 Weight 72.7 kg General appearance: PRESENT: no acute distress, thin, well-developed Head exam: PRESENT: atraumatic, normocephalic Eye exam: PRESENT: conjunctiva pink, EOMI, PERRLA. ABSENT: scleral icterus Neck exam: ABSENT: carotid bruit, JVD, lymphadenopathy, thyromegaly Respiratory exam: PRESENT: clear to auscultation matias Cardiovascular exam: PRESENT: RRR. ABSENT: diastolic murmur, rubs, systolic murmur Pulses: PRESENT: normal dorsalis pedis pul Vascular exam: PRESENT: normal capillary refill GI/Abdominal exam: PRESENT: organolmegaly - spleen palpable below left costal margin Extremities exam: PRESENT: full ROM. ABSENT: calf tenderness, clubbing, pedal edema Musculoskeletal exam: ABSENT: ambulatory, deformity, dislocation, full ROM, normal inspection, tenderness, other Neurological exam: PRESENT: alert, awake, oriented to person, oriented to place , oriented to time, oriented to situation, CN II-XII grossly intact. ABSENT: motor sensory deficit Results Laboratory Results: 11/27/17 04:48 11/26/17 11/27/17 11/27/17 21:19 04:48 04:48 WBC 0.7 L* RBC 3.07 L Hgb 8.3 L Hct 23.8 L MCV 77 L MCH 27.0 MCHC 34.9 RDW 16.4 H Plt Count 132 L Seg Neutrophils % Not Reportable Lymphocytes % Not Reportable Monocytes % Not Reportable Eosinophils % Not Reportable Basophils % Not Reportable Absolute Neutrophils Not Reportable Absolute Lymphocytes Not Reportable Absolute Monocytes Not Reportable Absolute Eosinophils Not Reportable Absolute Basophils Not Reportable Retic Count (auto) 1.41 Absolute Retic 0.043 Carbonic Acid 0.90 L HCO3/H2CO3 Ratio 23:1 ABG pH 7.47 H ABG pCO2 29.9 L ABG pO2 43.7 L ABG HCO3 21.1 ABG O2 Saturation 83.2 L ABG Base Excess -1.6 FiO2 21% Iron < 10.1 L TIBC 194 L % Saturation UNABLE TO CALCULATE Ferritin 273.00 Vitamin B12 167.0 L Folate 13.40 TSH Free T4 11/27/17 04:48 WBC RBC Hgb Hct MCV MCH MCHC RDW Plt Count Seg Neutrophils % Lymphocytes % Monocytes % Eosinophils % Basophils % Absolute Neutrophils Absolute Lymphocytes Absolute Monocytes Absolute Eosinophils Absolute Basophils Retic Count (auto) Absolute Retic Carbonic Acid HCO3/H2CO3 Ratio ABG pH ABG pCO2 ABG pO2 ABG HCO3 ABG O2 Saturation ABG Base Excess FiO2 Iron TIBC % Saturation Ferritin Vitamin B12 Folate TSH 2.20 Free T4 1.27 Impressions: Chest X-Ray 11/26/17 11:28 IMPRESSION: RIGHT UPPER LOBE INFILTRATE CONSISTENT WITH PNEUMONIA. Abdomen/Pelvis CT 11/26/17 14:54 IMPRESSION: 1. MARKED SPLENOMEGALY. NO FOCAL LESIONS. NO OTHER SIGNIFICANT OR ACUTE FINDING IN THE ABDOMEN OR PELVIS ON CT SCAN WITH IV CONTRAST. 2. 3 MM NODULE IN THE RIGHT LOWER LOBE. FOLLOW-UP CLINICALLY INDICATED. Assessment & Plan - Diagnosis (1) Pancytopenia Is this a current diagnosis for this admission?: Yes (2) Splenomegaly Is this a current diagnosis for this admission?: Yes (3) Hx of hepatitis C Is this a current diagnosis for this admission?: Yes (4) Neutropenia Is this a current diagnosis for this admission?: Yes (5) Right upper lobe pneumonia Is this a current diagnosis for this admission?: Yes - Time Time Spent with patient: Continue present management Hold Neupogen at this time as the diagnosis of pancytopenia secondary to hepatitis C has not been confirmed Appreciate hematology input Time Spent with patient: 25-34 minutes - Inpatient Certification Based on my medical assessment, after consideration of the patient's comorbidities, presenting symptoms, or acuity I expect that the services needed warrant INPATIENT care.: Yes Medical Necessity: Need for IV Antibiotics, Risk of Complication if Not Cared For in Hospital
[2017-11-27 20:39] LABS: VANCOMYCIN,TROUGH 9.1 ug/mL (5.0-20.0)
[2017-11-28] MEDS: OXYCODONE-ACETAMINOPHEN 5-325 MG TABLET PO PRN ×2 (01:33→09:30)
[2017-11-28] MEDS: NICOTINE 14 MG/24 HR PATCH.TD24 TD SCH ×2 (04:10→12:12)
[2017-11-28] MEDS: VANCOMYCIN HCL 1,250 MG in DEXTROSE 5%-WATER 250 ML IV SCH (04:36)
[2017-11-28 05:20] LABS: MEAN CORPUSCULAR HEMOGLOBIN 26.8 pg (27.0-33.4); MEAN CORPUSCULAR HGB CONC 34.6 g/dL (32.0-36.0); MEAN CORPUSCULAR VOLUME 78 fl (80-97); PLATELET COUNT 150 10^3/uL (150-450); RED BLOOD COUNT 3.34 10^6/uL (4.35-5.55); RED CELL DISTRIBUTION WIDTH 16.3 % (11.5-14.0)
[2017-11-28 05:56] LABS: ABSOLUTE LYMPHOCYTES# (MANUAL) 0.4 10^3/uL (0.5-4.7); ABSOLUTE MONOCYTES # (MANUAL) 0.2 10^3/uL (0.1-1.4); ABSOLUTE NEUTROPHILS# (MANUAL) 0.3 10^3/uL (1.7-8.2); BASOPHILS % (MANUAL) 0 % (0-2); EOSINOPHILS % (MANUAL) 8 % (0-6); LYMPHOCYTES % (MANUAL) 42 % (13-45); MONOCYTES % (MANUAL) 20 % (3-13); SEGMENTED NEUTROPHILS % (MAN) 30 % (42-78); TOTAL CELLS COUNTED 50
[2017-11-28 06:01] LABS: ANISOCYTOSIS 1+; PLATELET COMMENT ADEQUATE; PLATELET LARGE PRESENT; POIKILOCYTOSIS SLIGHT; SCHISTOCYTES SLIGHT; TOXIC GRANULATION SLIGHT
[2017-11-28 06:02] LABS: POLYCHROMASIA SLIGHT
[2017-11-28 06:07] LABS: WHITE BLOOD COUNT 0.9 10^3/uL (4.0-10.5)
[2017-11-28 07:42] LABS: HEPATITIS A AB IGM Negative (Negative); HEPATITIS B CORE AB IGM Negative (Negative); HEPATITS B SURFACE ANTIGEN Negative (Negative)
--- NOTE | 2017-11-28 08:16 | PDOC PROGRESS REPORT ---
Subjective Progress Note for:: 11/28/17 Subjective:: Patient states that he has had terrible back pain all night. He was given 1 dose pain medication, and this helped some. He also would like to shower. Otherwise, he asks why he has not yet received a blood transfusion, as this has happened in the past. ROS: Back pain, No N/V/C/D. No dyspnea. No dysuria. No chest pain. Reason For Visit: PNEUMONIA, NEUTROPENIA, PANCYTOPENIA Physical Exam Vital Signs: Temp Pulse Resp BP Pulse Ox 100.1 F 92 16 119/62 100 11/27/17 23:42 11/27/17 23:42 11/27/17 23:42 11/27/17 23:42 11/27/17 23:42 Intake & Output 11/27/17 11/28/17 11/29/17 06:59 06:59 06:59 Intake Total 1480 3191 Output Total 700 1050 Balance 780 2141 Weight 72.7 kg 74.3 kg General appearance: PRESENT: no acute distress, thin Respiratory exam: PRESENT: clear to auscultation matias, unlabored Cardiovascular exam: PRESENT: RRR. ABSENT: systolic murmur Pulses: PRESENT: normal dorsalis pedis pul GI/Abdominal exam: PRESENT: organolmegaly - Spleen tip palpable., soft. ABSENT : tenderness Extremities exam: ABSENT: pedal edema Neurological exam: PRESENT: alert, awake. ABSENT: motor sensory deficit Psychiatric exam: PRESENT: appropriate affect Skin exam: PRESENT: normal color Results Laboratory Results: 11/28/17 04:46 11/27/17 19:50 11/27/17 11/28/17 19:50 04:46 WBC 0.9 L* RBC 3.34 L Hgb 9.0 L Hct 26.0 L MCV 78 L MCH 26.8 L MCHC 34.6 RDW 16.3 H Plt Count 150 Seg Neutrophils % Not Reportable Lymphocytes % Not Reportable Monocytes % Not Reportable Eosinophils % Not Reportable Basophils % Not Reportable Absolute Neutrophils Not Reportable Absolute Lymphocytes Not Reportable Absolute Monocytes Not Reportable Absolute Eosinophils Not Reportable Absolute Basophils Not Reportable Creatinine 0.74 Est GFR ( Amer) > 60 Est GFR (Non-Af Amer) > 60 Impressions: Chest X-Ray 11/26/17 11:28 IMPRESSION: RIGHT UPPER LOBE INFILTRATE CONSISTENT WITH PNEUMONIA. Abdomen/Pelvis CT 11/26/17 14:54 IMPRESSION: 1. MARKED SPLENOMEGALY. NO FOCAL LESIONS. NO OTHER SIGNIFICANT OR ACUTE FINDING IN THE ABDOMEN OR PELVIS ON CT SCAN WITH IV CONTRAST. 2. 3 MM NODULE IN THE RIGHT LOWER LOBE. FOLLOW-UP CLINICALLY INDICATED. Assessment & Plan - Diagnosis (1) Pancytopenia Is this a current diagnosis for this admission?: Yes Plan: A bit better today. Platelets are back to normal. WBC is 0.9 (2) Hx of hepatitis C Is this a current diagnosis for this admission?: Yes Plan: Awaiting further records. (3) Right upper lobe pneumonia Is this a current diagnosis for this admission?: Yes Plan: Fevers continue. Continue current ABX. All cultures are NGTD (4) Vitamin B12 deficiency Is this a current diagnosis for this admission?: Yes Plan: He is receiving Vit B12 injections. I will continue to follow this as an outpatient. (5) Back pain Is this a current diagnosis for this admission?: Yes Plan: I have encouraged him to ask for the pain med when he needs them. He agrees. - Plan Summary Plan Summary: OK for patient to shower from my standpoint. I have explained to him that he must be without fever for at least 24 hours and preferably with ANC > 1.0 prior to discharge. I will continue to follow. Will consider neupogen if needed, once old records have been reviewed.
[2017-11-28 08:41] LABS: HEPATITIS C VIRUS ANTIBODY >11.0 s/co ratio (0.0-0.9)
[2017-11-28 09:16] LABS: TRANSFERRIN 117 mg/dL (200-370)
[2017-11-28] MEDS: FAMOTIDINE 20 MG TABLET PO SCH (09:24)
[2017-11-28] MEDS: CYANOCOBALAMIN (VITAMIN B-12) INJ 1000 MCG/1 ML VIAL IM SCH (09:29)
[2017-11-28] MEDS: CEFEPIME HCL 2 GM in NORMAL SALINE 100 ML IV SCH (09:31)
[2017-11-28] MEDS ORDERED: VANCOMYCIN HCL 1,500 MG in DEXTROSE 5%-WATER 250 ML IV SCH (12:00)
[2017-11-28 12:34] VITALS: BP 120/86
[2017-11-28] MEDS ORDERED: CEFEPIME HCL 2 GM in DEXTROSE 5%-WATER 50 ML IV SCH (22:00)
--- NOTE | 2017-11-29 11:05 | PDOC DISCHARGE SUMMARY ---
General - Admit/Disc Date/PCP Admission Date/Primary Care Provider: 11/26/17 17:44 Discharge Date: 11/28/17 - Discharge Diagnosis (1) Pancytopenia Is this a current diagnosis for this admission?: Yes (2) Splenomegaly Is this a current diagnosis for this admission?: Yes (3) Hx of hepatitis C Is this a current diagnosis for this admission?: Yes (4) Neutropenia Is this a current diagnosis for this admission?: Yes (5) Right upper lobe pneumonia Is this a current diagnosis for this admission?: Yes (6) Left against medical advice Is this a current diagnosis for this admission?: Yes - Additional Information Resuscitation Status: Full Code Home Medications: No Home Medications 11/28/17 History of Present Illness History of Present Illness: MARY SCHROEDER is a 51 year old male with a known past history of hepatitis C untreated Presented to the ED with a four-day history of fever chills night sweats Upon evaluation in the ED patient was diagnosed of severe neutropenia with a white blood count of 0.8 and ANC of 13; Chest x-ray showed a right upper lobe infiltrate Patient in the ED was treated with vancomycin and Zosyn and Bactrim Hospitalist hospitalist service was called for admission Hospital Course Hospital Course: Patient is a 51-year-old with a known past history of hepatitis C untreated who presented with sepsis, severe neutropenia and right upper lobe pneumonia Patient was treated with cefepime and vancomycin The white blood count remained low at 0.8-0.9 was less than 300 neutrophils Hematology consult was obtained Chronic hepatitis C was confirmed with hepatitis C antibody greater than 11 11/26/17 11/27/17 11/27/17 13:30 04:48 04:48 WBC 0.8 L* 0.7 L* Hgb 8.8 L 8.3 L Plt Count 137 L 132 L Seg Neutrophils % 17.1 L Hepatitis C Antibody >11.0 H Patient was extremely stable He had an argument with his and suddenly decided to sign AGAINST MEDICAL ADVICE and left Physical Exam Vital Signs: Temp Pulse Resp BP Pulse Ox 98.9 F 85 16 120/86 H 99 11/28/17 12:00 11/28/17 13:22 11/28/17 13:22 11/28/17 12:00 11/28/17 13:22 Intake & Output 11/28/17 11/29/17 11/30/17 00:59 00:59 00:59 Intake Total 3191 1040 Output Total 950 450 Balance 2241 590 Weight 72.7 kg 74.3 kg General appearance: PRESENT: no acute distress, thin, well-developed Head exam: PRESENT: atraumatic, normocephalic Eye exam: PRESENT: conjunctiva pink, EOMI, PERRLA. ABSENT: scleral icterus Neck exam: ABSENT: carotid bruit, JVD, lymphadenopathy, thyromegaly Respiratory exam: PRESENT: clear to auscultation matias Cardiovascular exam: PRESENT: RRR. ABSENT: diastolic murmur, rubs, systolic murmur Pulses: PRESENT: normal dorsalis pedis pul Vascular exam: PRESENT: normal capillary refill GI/Abdominal exam: PRESENT: organolmegaly - spleen palpable below left costal margin Extremities exam: PRESENT: full ROM. ABSENT: calf tenderness, clubbing, pedal edema Musculoskeletal exam: ABSENT: ambulatory, deformity, dislocation, full ROM, normal inspection, tenderness, other Neurological exam: PRESENT: alert, awake, oriented to person, oriented to place , oriented to time, oriented to situation, CN II-XII grossly intact. ABSENT: motor sensory deficit Results Laboratory Results: 11/28/17 04:46 11/27/17 19:50 11/26/17 17:50 Sputum Gram Stain - Final 11/26/17 17:50 Sputum Sputum Culture - Final NORMAL INDRA Impressions: Chest X-Ray 11/26/17 11:28 IMPRESSION: RIGHT UPPER LOBE INFILTRATE CONSISTENT WITH PNEUMONIA. Abdomen/Pelvis CT 11/26/17 14:54 IMPRESSION: 1. MARKED SPLENOMEGALY. NO FOCAL LESIONS. NO OTHER SIGNIFICANT OR ACUTE FINDING IN THE ABDOMEN OR PELVIS ON CT SCAN WITH IV CONTRAST. 2. 3 MM NODULE IN THE RIGHT LOWER LOBE. FOLLOW-UP CLINICALLY INDICATED. Qualifiers - * PATEINT BEING DISCHARGED WITH ANY OF THE FOLLOWING DIAGNOSIS?: No
[2017-11-30 06:40] LABS: HCV FIBROSURE ALT P5P 47 IU/L (0-55); HCV FIBROSURE GGT 25 IU/L (0-65); HCV FIBROSURE HAPTOGLOBIN 300 mg/dL (34-200); NECROINFLAM ACTIVITY GRADE A0-A1 (.); NECROINFLAMM ACTIVITY SCORE 0.21 (0.00-0.17)
== END 2017-11-28 15:44 | disposition left against medical advice (07) | DRG 814 ==
LOC: ER 10:44 → EH 17:44 → 4N 20:07
PROVIDERS: ADMIT Internal Medicine; ATTEND Internal Medicine
PROC: 3E0F73Z Introduction of Anti-inflammatory into Respiratory Tract, Via Natural or Artificial Opening (ICD-10-PCS; principal; 2017-11-27)
DX: D73.81 Neutropenic splenomegaly (principal); J18.9 Pneumonia, unspecified organism; D61.818 Other pancytopenia; E53.8 Deficiency of other specified B group vitamins; R91.1 Solitary pulmonary nodule; F17.210 Nicotine dependence, cigarettes, uncomplicated; Z86.19 Personal history of other infectious and parasitic diseases
CPT/HCPCS: 36415; 71046; 74177; 80053; 80074; 80202; 81001; 81270; 82172; 82247; 82550; 82553; 82565; 82607; 82728; 82746; 82803; 82977; 83010; 83540; 83550; 83605; 83690; 83883; 84439; 84443; 84460; 84466; 84484; 85025; 85045; 86701; 87040; 87070; 87086; 87205; 93005; 93010; 94640; 94667; 96365; 99285; J0692; J2543; J3370; J3420; J7030; J7060; J7620

== ENCOUNTER 2017-11-28 21:10 | Inpatient (IN) | payer OTHER ==
[2017-11-28] MEDS ORDERED: VANCOMYCIN HCL INJ 1000 MG VIAL IV ONE (22:36)
[2017-11-28] MEDS ORDERED: CEFEPIME 2 GM/D5W RTU 2 GM/50 ML RTUPB IV ONE (22:36)
--- NOTE | 2017-11-28 22:44 | ER Document Report ---
ED General - General Chief Complaint: Breathing Difficulty Stated Complaint: FEVER Time Seen by Provider: 11/28/17 22:29 Notes: Patient is a 51-year-old male with a past medical history of pancytopenia of unclear origin, hepatitis C, who left the hospital AMA several hours prior to arrival. The patient had been hospitalized for a right upper lobe pneumonia in the setting of pancytopenia and sepsis. He apparently left the facility as he was worried that something happened to his when she did not answer her phone. The patient has returned as he developed a fever, had persistent shortness of breath and felt very unwell. He has apologized for leaving the hospital stating that he only did out of concern for his . He would like to be readmitted to the hospital. He was receiving IV antibiotics while in the hospital and states that he felt this is making him feel better. He denies anything seems to worsen his symptoms. He denies any history of similar symptoms in the past. He denies any pain. TRAVEL OUTSIDE OF THE [place] IN LAST 30 DAYS: No - Related Data Allergies/Adverse Reactions: No Known Allergies Allergy (Unverified 11/26/17 10:46) Past Medical History - General Information source: Patient - Social History Smoking Status: Current Every Day Smoker Chew tobacco use (# tins/day): No Frequency of alcohol use: None Drug Abuse: None Lives with: Spouse/Significant other Family History: Reviewed & Not Pertinent Patient has suicidal ideation: No Patient has homicidal ideation: No Renal/ Medical History: Denies: Hx Peritoneal Dialysis GI Medical History: Reports: Hx Hepatitis - Hepatitis C Infectious Medical History: Reports: Hx Hepatitis - Hepatitis C Review of Systems - Review of Systems Notes: Constitutional: Positive for fever. HENT: Negative for sore throat. Eyes: Negative for visual changes. Cardiovascular: Negative for chest pain. Respiratory: Positive for shortness of breath. Gastrointestinal: Negative for abdominal pain, vomiting or diarrhea. Genitourinary: Negative for dysuria. Musculoskeletal: Negative for back pain. Skin: Negative for rash. Neurological: Negative for headaches, weakness or numbness. 10 point ROS negative except as marked above and in HPI. Physical Exam - Vital signs Vitals: Temp Pulse Resp BP Pulse Ox 99.0 F 99 20 135/65 H 97 11/28/17 21:18 11/28/17 21:18 11/28/17 21:18 11/28/17 21:18 11/28/17 21:18 Interpretation: Normal Notes: PHYSICAL EXAMINATION: GENERAL: Well-appearing, well-nourished and in no acute distress. HEAD: Atraumatic, normocephalic. EYES: Pupils equal round and reactive to light, extraocular movements intact, sclera anicteric, conjunctiva are normal. ENT: nares patent, oropharynx clear without exudates. Moderately dry mucous membranes. NECK: Normal range of motion, supple without lymphadenopathy LUNGS: Mildly diminished at the right upper lobe otherwise unremarkable lung examination HEART: Regular rate and rhythm without murmurs ABDOMEN: Soft, nontender, normoactive bowel sounds. No guarding, no rebound. No masses appreciated. EXTREMITIES: Normal range of motion, no pitting or edema. No cyanosis. NEUROLOGICAL: No focal neurological deficits. Moves all extremities spontaneously and on command. PSYCH: Normal mood, normal affect. SKIN: Warm, Dry, normal turgor, no rashes or lesions noted. Course - Re-evaluation Re-evalutation: 11/28/17 22:43 Patient presents after leaving AGAINST MEDICAL ADVICE proximal 5 hours ago because he was worried that something happened to his because she would not answer her cell phone. The patient comes back stating that he again spiked a fever at home, felt very poorly, had shortness of breath and realized that he was still sick. On examination the patient is overall nontoxic in appearance afebrile at time of arrival and his other vitals are within acceptable limits. Review of his previous laboratories from earlier today shows that he still had neutropenia and was febrile earlier this morning. He has a known right upper lobe pneumonia was being treated with cefepime and vancomycin. Patient is agreeable to being readmitted to the hospital. Will recheck basic laboratories , chest x-ray and discussed with the hospitalist for admission 11/29/17 00:23 Chest x-ray shows slight worsening of the right upper lobe pneumonia. Patient continues to be neutropenic. Otherwise remains well-appearing. I have discussed this case with the hospitalist Dr. Mcdermott and she is excepted the patient for admission. - Vital Signs Vital signs: Temp Pulse Resp BP Pulse Ox 99.6 F 90 16 125/58 L 100 11/29/17 03:03 11/29/17 03:03 11/29/17 03:03 11/29/17 03:03 11/29/17 03:03 - Laboratory Result Diagrams: 11/28/17 23:20 11/28/17 23:20 Laboratory results interpreted by me: 11/28/17 11/28/17 23:20 23:20 WBC 0.9 L* RBC 2.95 L Hgb 7.9 L Hct 22.9 L MCV 78 L MCH 26.8 L RDW 16.1 H Glucose 130 H Total Bilirubin 0.1 L Total Protein 5.7 L Albumin 2.7 L - Diagnostic Test Radiology reviewed: Image reviewed, Reports reviewed Radiology results interpreted by me: 11/29/17 00:23 Chest x-ray: Right upper lobe pneumonia Discharge - Discharge Clinical Impression: Pancytopenia, Hx of hepatitis C Right upper lobe pneumonia Qualifiers: Pneumonia type: due to unspecified organism Qualified Code(s): J18.1 - Lobar pneumonia, unspecified organism Neutropenia Qualifiers: Neutropenia type: unspecified Qualified Code(s): D70.9 - Neutropenia, unspecified Condition: Fair Disposition: ADMITTED INPATIENT Admitting Provider: Hospitalist Unit Admitted: Medical Floor
--- NOTE | 2017-11-28 23:14 | RADIOLOGY REPORT (SQ) ---
EXAM DESCRIPTION: CHEST SINGLE VIEW COMPLETED DATE/TIME: 11/28/2017 10:52 pm REASON FOR STUDY: sob COMPARISON: 11/26/2017 EXAM PARAMETERS: NUMBER OF VIEWS: One view. TECHNIQUE: Single frontal radiographic view of the chest acquired. RADIATION DOSE: NA LIMITATIONS: None. FINDINGS: LUNGS AND PLEURA: Mildly increased opacity -consolidation in the lateral aspect of the rig ht upper lobe. No pleural effusion. Left lung appears clear. The no pneumothorax. MEDIASTINUM AND HILAR STRUCTURES: Stable. HEART AND VASCULAR STRUCTURES: Stable. BONES: No acute findings. HARDWARE: None in the chest. OTHER: No other significant finding. IMPRESSION: Mildly increased opacity -consolidation in the lateral aspect of the right upper lobe. N o pleural effusion. TECHNICAL DOCUMENTATION: JOB ID: [id number] [id number] 2010 [employer]- All Rights Reserved Reading location - IP/workstation name: [employer]
[2017-11-28 23:39] LABS: HEMATOCRIT 22.9 % (37.9-51.0); MEAN CORPUSCULAR HEMOGLOBIN 26.8 pg (27.0-33.4); MEAN CORPUSCULAR HGB CONC 34.5 g/dL (32.0-36.0); MEAN CORPUSCULAR VOLUME 78 fl (80-97); PLATELET COUNT 168 10^3/uL (150-450); RED BLOOD COUNT 2.95 10^6/uL (4.35-5.55); RED CELL DISTRIBUTION WIDTH 16.1 % (11.5-14.0)
[2017-11-28 23:45] LABS: HEMOGLOBIN 7.9 g/dL (13.5-17.0); WHITE BLOOD COUNT 0.9 10^3/uL (4.0-10.5)
[2017-11-28 23:50] LABS: ALANINE AMINOTRANSFERASE 57 U/L (21-72); ALBUMIN 2.7 g/dL (3.5-5.0); ALKALINE PHOSPHATASE 57 U/L (38-126); ANION GAP 10 (5-19); ASPARTATE AMINO TRANSFERASE 58 U/L (17-59); BILIRUBIN,DIRECT 0.1 mg/dL (0.0-0.4); BILIRUBIN,TOTAL 0.1 mg/dL (0.2-1.3); BLOOD UREA NITROGEN 8 mg/dL (7-20); CALCIUM 8.4 mg/dL (8.4-10.2); CARBON DIOXIDE 22 mmol/L (22-30); CHLORIDE 106 mmol/L (98-107); GLUCOSE 130 mg/dL (75-110); POTASSIUM 3.6 mmol/L (3.6-5.0); SODIUM 138.3 mmol/L (137-145); TOTAL PROTEIN 5.7 g/dL (6.3-8.2)
[2017-11-28 23:52] LABS: PLATELET COMMENT ADEQUATE
[2017-11-28 23:58] LABS: PLATELET LARGE PRESENT; POLYCHROMASIA SLIGHT
[2017-11-28 23:59] LABS: ANISOCYTOSIS 1+; HYPOCHROMASIA 1+; PLATELET CLUMPS PRESENT
[2017-11-29] MEDS ORDERED: ALBUTEROL SULFATE 0.083% NEB 2.5 MG/3 ML AMPUL NEB PRN (00:46)
[2017-11-29] MEDS ORDERED: VANCOMYCIN HCL 0 MG in DEXTROSE 5%-WATER 250 ML IV NR (01:00)
--- NOTE | 2017-11-29 05:08 | PDOC H&P ---
History of Present Illness Patient complains of: Persistent generalized weakness today. History of Present Illness: MARY SCHROEDER is a 51 year old male smoker with a history of HCV (untreated) was readmitted with above-mentioned complaints. The patient was last hospitalized here from 11/26/2017 to 11/28/2017 with pancytopenia and RUL pneumonia. He signed AMA despite the fact that he was advised to stay till he is afebrile for at least 24 hours with ANC more than 1.0. He apparently was concerned about his not answering her phone, having relocated from [place] recently. According to the ED physician, the patient had a fever at home so his brought him back to the hospital but the patient denied feeling feverish. He also denied any chills, cough, sputum, shortness of breath or chest pain. He only complained of having nausea and feeling very weak but again denied any abdominal pain per se, vomiting, diarrhea or constipation or any urinary symptoms or focal deficits. In the ED, his temperature was 99, heart rate 99, respiratory rate 20, blood pressure 135/65 with oxygen saturation of 97% on room air. His WBC was 0.9 with hemoglobin of 7.9 (down from 9.0 earlier in the morning). A chest x-ray was done which showed mild worsening in the right upper lobe infiltrate. He received 1250 mg IV Vanco x1 and 2 gm IV Cefepime x1. Past Medical History GI Medical History: Reports: Hepatitis - Hepatitis C (has not been treated)., Other - splenomegaly. Hematology: Reports: Anemia, Neutropenia Infectious Medical History: Reports: Hepatitis C Denies: HIV Past Surgical History Past Surgical History: Reports: None Social History Smoking Status: Current Every Day Smoker Cigarettes Packs Per Day: 0.5 - Cigarettes a day for 43 years. Frequency of Alcohol Use: None Hx Recreational Drug Use: No Drugs: None Hx Prescription Drug Abuse: No - Advance Directive Resuscitation Status: Full Code Family History Parental Family History Reviewed: Yes - No family history of cardiac disease or diabetes per patient Children Family History Reviewed: No Sibling(s) Family History Reviewed.: Yes Medication/Allergy Home Medications: No Home Medications 11/28/17 Allergies/Adverse Reactions: No Known Allergies Allergy (Unverified 11/26/17 10:46) Review of Systems ROS unobtainable: Other - Pertinent positives and negatives as detailed in the HPI. Physical Exam Vital Signs: Temp Pulse Resp BP Pulse Ox 99.0 F 99 20 135/65 H 97 11/28/17 21:18 11/28/17 21:18 11/28/17 21:18 11/28/17 21:18 11/28/17 21:18 Intake & Output 11/27/17 11/28/17 11/29/17 06:59 06:59 06:59 Weight 75.8 kg General appearance: PRESENT: no acute distress, thin Head exam: PRESENT: atraumatic, normocephalic Eye exam: PRESENT: PERRLA Mouth exam: PRESENT: dry mucosa, neck supple Teeth exam: PRESENT: poor dentation Neck exam: PRESENT: full ROM. ABSENT: JVD Respiratory exam: PRESENT: clear to auscultation matias. ABSENT: rales, rhonchi, wheezes Cardiovascular exam: PRESENT: RRR, +S1, +S2 Pulses: PRESENT: normal dorsalis pedis pul GI/Abdominal exam: PRESENT: distended, firm, normal bowel sounds. ABSENT: guarding, rebound, tenderness Rectal exam: PRESENT: deferred Extremities exam: PRESENT: full ROM. ABSENT: pedal edema Musculoskeletal exam: PRESENT: full ROM Neurological exam: PRESENT: alert, altered, awake. ABSENT: motor sensory deficit Skin exam: PRESENT: dry, warm. ABSENT: erythema, rash Results Laboratory Results: 11/28/17 23:20 11/28/17 23:20 11/28/17 11/28/17 23:20 23:20 WBC 0.9 L* RBC 2.95 L Hgb 7.9 L Hct 22.9 L MCV 78 L MCH 26.8 L MCHC 34.5 RDW 16.1 H Plt Count 168 Seg Neutrophils % Not Reportable Lymphocytes % Not Reportable Monocytes % Not Reportable Eosinophils % Not Reportable Basophils % Not Reportable Absolute Neutrophils Not Reportable Absolute Lymphocytes Not Reportable Absolute Monocytes Not Reportable Absolute Eosinophils Not Reportable Absolute Basophils Not Reportable Sodium 138.3 Potassium 3.6 Chloride 106 Carbon Dioxide 22 Anion Gap 10 BUN 8 Creatinine 0.62 Est GFR ( Amer) > 60 Est GFR (Non-Af Amer) > 60 Glucose 130 H Calcium 8.4 Total Bilirubin 0.1 L AST 58 ALT 57 Alkaline Phosphatase 57 Total Protein 5.7 L Albumin 2.7 L Impressions: Chest X-Ray 11/28/17 22:35 IMPRESSION: Mildly increased opacity -consolidation in the lateral aspect of the right upper lobe. No pleural effusion. Assessment & Plan - Diagnosis (1) Neutropenia associated with infection Is this a current diagnosis for this admission?: Yes Plan: CXR showed worsening right upper lobe pneumonia. Will obtain a CAT scan of the chest for further assessment. Of note, the patient had an abdominal CAT scan on 11/26/2017 which only showed splenomegaly and 3 mm nodule in his right lower lobe. He is a smoker. (2) Right upper lobe pneumonia Qualifiers: Pneumonia type: due to unspecified organism Qualified Code(s): J18.1 - Lobar pneumonia, unspecified organism Is this a current diagnosis for this admission?: Yes Plan: CXR reviewed. Will follow up the CAT scan of the chest. Will resume cefepime. The patient received 3 days of Vancomycin so far, will not resume since his blood cultures drawn on 11/26/2017 remain negative and he does not have any history of MRSA. (3) Anemia Qualifiers: Anemia type: unspecified type Qualified Code(s): D64.9 - Anemia, unspecified Is this a current diagnosis for this admission?: Yes Plan: Secondary to anemia of chronic disease and B12 deficiency. There is no evidence of kendall GI bleed at this time. The patient apparently had PRBCs transfusions in the past. I am not sure if the patient had any EGD/ colonoscopy. Will check PT/INR and hemoccult stool. He was followed by oncology during his most recent hospitalization who apparently requested previous records for further evaluation. He has already been started on B12 injections which he will continue as outpatient per oncology note. (4) Hx of hepatitis C Is this a current diagnosis for this admission?: Yes Plan: secondary to tattoos while incarcerated 20 years ago per patient. He was never treated. His hepatitis profile on 11/27/2017 showed positive hepatitis C antibodies. Hepatitis C genotype is still pending. HCV PCR (ordered). HIV test was negative. His abdominal CAT scan did not show cirrhosis. Will check abdominal US. (5) Smoker Is this a current diagnosis for this admission?: Yes Plan: 7 cigarettes a day for many years. He does not seem motivated to quit. He refused a nicotine patch. (6) Splenomegaly Is this a current diagnosis for this admission?: Yes Plan: on recent abdominal CAT scan. His platelets count is within normal range at this time. - Time Time Spent: 50 to 70 Minutes - Inpatient Certification Based on my medical assessment, after consideration of the patient's comorbidities, presenting symptoms, or acuity I expect that the services needed warrant INPATIENT care.: Yes I certify that my determination is in accordance with my understanding of Medicare's requirements for reasonable and necessary INPATIENT services [42 CFR 412.3e].: Yes
[2017-11-29] MEDS: HEPARIN SOD (PORCINE) 5,000 UNIT/ML 1 ML SYRINGE SUBCUT SCH ×3 (07:00→22:25)
[2017-11-29] MEDS: CEFEPIME 1 GM/D5W RTU 1 GM/50 ML RTUPB IV SCH ×2 (10:52→22:25)
--- NOTE | 2017-11-29 11:00 | RADIOLOGY REPORT (SQ) ---
EXAM DESCRIPTION: CT CHEST WITH COMPLETED DATE/TIME: 11/29/2017 10:09 am REASON FOR STUDY: RUL pneumonia/pulmonry nodule on CT abd/leukopenia COMPARISON: None. TECHNIQUE: CT scan of the chest performed using helical scanning technique with dynamic intravenous contrast injection. Images reviewed with lung, soft tissue and bone windows. Reconstructed coronal and sagittal MPR images reviewed. All images stored on PACS. All CT scanners at this facility use dose modulation, iterative reconstruction, and/or weight based d osing when appropriate to reduce radiation dose to as low as reasonably achievable (ALARA). [facility]: Dose Right [facility]: CareDose [facility]: Dose Right [facility]: Teradose 4D [facility]: [employer] CONTRAST TYPE AND DOSE: contrast/concentration: Isovue 370.00 mg/ml; Total Contrast Delivered: 83.3 ml; Total Saline Delivered: 62.0 ml RENAL FUNCTION: GFR > 60. RADIATION DOSE: CT Rad equipment meets quality standard of care and radiation dose reduction techniq ues were employed. CTDIvol: 4.4 mGy. DLP: 179 mGy-cm. . LIMITATIONS: None. FINDINGS: LUNGS AND PLEURA: Centrilobular and paraseptal emphysema. Subsegmental airspace disease i n the right upper lobe. Segmental airspace disease in the lateral segment of the middle lobe. Left upper lobe part solid nodule measuring 6.5 mm. There are 3, possibly 4 smaller nodules in the right lower lobe, the largest about 4 mm image 98. HILAR AND MEDIASTINAL STRUCTURES: No identified masses or abnormal nodes. HEART AND VASCULAR STRUCTURES: No aneurysm or dissection. No central pulmonary emboli. No pericardi al effusion. HARDWARE: None in the chest. UPPER ABDOMEN: See recent CT abdomen pelvis report. THYROID AND OTHER SOFT TISSUES: No masses. No adenopathy. BONES: No acute findings. OTHER: No other significant finding. IMPRESSION: 1. Right upper lobe and middle lobe airspace disease consistent with acute pneumonia. 2. Bilateral pulmonary nodules, the largest in the left upper lobe of. Too small to biopsy or charac terize by PET-CT. COMMENT: Fleischner Criteria for Ground Glass Nodules: >6-8mm part solid single nodule: CT 3-6 mo to confirm persistence, if unchanged solid component remai ns < 6mm annual CT should be performed for 5 yrs. TECHNICAL DOCUMENTATION: JOB ID: [id number] Quality ID # [id number]: Final reports with documentation of one or more dose reduction techniques (e.g., Au tomated exposure control, adjustment of the mA and/or kV according to patient size, use of iterative reconstruction technique) 2010 [employer]- All Rights Reserved Reading location - IP/workstation name: [email or web address]
[2017-11-29] MEDS ORDERED: NORMAL SALINE 250 ML IV PRN ×2 (11:19)
--- NOTE | 2017-11-29 11:25 | PDOC PROGRESS REPORT ---
Subjective Progress Note for:: 11/29/17 Subjective:: Patient still is complaining of generalized weakness He had signed AMA yesterday and returned He has had no fever or chills since readmitted No shortness of breath no chest pain no productive cough Repeat CBC showed decreased hemoglobin less than 8 His white blood count is still low at 0.9 Reason For Visit: NEUTROPENIA/PNEUMONIA Physical Exam Vital Signs: Temp Pulse Resp BP Pulse Ox 101.9 F H 85 14 120/57 L 98 11/29/17 08:39 11/29/17 08:39 11/29/17 08:39 11/29/17 08:39 11/29/17 08:39 Intake & Output 11/28/17 11/29/17 11/30/17 00:59 00:59 00:59 Intake Total 150 Balance 150 Weight 74 kg General appearance: PRESENT: no acute distress, thin Head exam: PRESENT: atraumatic, normocephalic Eye exam: PRESENT: conjunctiva pale, EOMI, PERRLA Respiratory exam: PRESENT: clear to auscultation matias. ABSENT: rales, rhonchi, wheezes Cardiovascular exam: PRESENT: RRR. ABSENT: diastolic murmur, rubs, systolic murmur Pulses: PRESENT: normal dorsalis pedis pul Vascular exam: PRESENT: normal capillary refill Extremities exam: PRESENT: full ROM. ABSENT: calf tenderness, clubbing, pedal edema Neurological exam: PRESENT: alert, awake, oriented to person, oriented to place , oriented to time, oriented to situation, CN II-XII grossly intact. ABSENT: motor sensory deficit Results Impressions: Chest X-Ray 11/28/17 22:35 IMPRESSION: Mildly increased opacity -consolidation in the lateral aspect of the right upper lobe. No pleural effusion. Chest CT 11/29/17 00:00 IMPRESSION: 1. Right upper lobe and middle lobe airspace disease consistent with acute pneumonia. 2. Bilateral pulmonary nodules, the largest in the left upper lobe of. Too small to biopsy or characterize by PET-CT. Assessment & Plan - Diagnosis (1) Hx of hepatitis C Is this a current diagnosis for this admission?: Yes Plan: Hep C antibody were more than 11 11/28/17 04:46 Hepatitis C Genotype Pending Hep C Genotype Comment Pending Hep C quantitative RNA pending (2) Pancytopenia Is this a current diagnosis for this admission?: Yes Plan: Severe anemia and neutropenia Repeat CBC Patient may need a blood transfusion (3) Right upper lobe pneumonia Qualifiers: Pneumonia type: due to unspecified organism Qualified Code(s): J18.1 - Lobar pneumonia, unspecified organism Is this a current diagnosis for this admission?: Yes Plan: Patient now now is complaining of a toothache he has evidence of a dental abscess and tooth #14 is almost avulsed We will add Flagyl to cefepime to broaden coverage for anaerobes Patient may have had aspiration pneumonia secondary to dental abscess (4) Splenomegaly Is this a current diagnosis for this admission?: Yes (5) Vitamin B12 deficiency Is this a current diagnosis for this admission?: Yes Plan: Continue vitamin B12 IM - Time Time Spent with patient: Continue present management We will keep the patient until he has an ANC over 500 Time Spent with patient: 25-34 minutes - Inpatient Certification Based on my medical assessment, after consideration of the patient's comorbidities, presenting symptoms, or acuity I expect that the services needed warrant INPATIENT care.: Yes I certify that my determination is in accordance with my understanding of Medicare's requirements for reasonable and necessary INPATIENT services [42 CFR 412.3e].: Yes Medical Necessity: Need for IV Antibiotics, Risk of Complication if Not Cared For in Hospital
[2017-11-29] MEDS: METRONIDAZOLE 500 MG/NS RTU 100 ML IV SCH ×3 (11:48→23:19)
[2017-11-29 12:11] LABS: ABSOLUTE EOSINOPHILS # (AUTO) 0.1 10^3/uL (0.0-0.6); ABSOLUTE LYMPHOCYTES (AUTO) 0.3 10^3/uL (0.5-4.7); ABSOLUTE MONOCYTES (AUTO) 0.3 10^3/uL (0.1-1.4); ABSOLUTE NEUT (AUTO) 0.1 10^3/uL (1.7-8.2); BASOPHILS % (AUTO) 1.2 % (0-2); EOSINOPHILS % (AUTO) 7.6 % (0-6); HEMATOCRIT 23.2 % (37.9-51.0); LYMPHOCYTES % (AUTO) 38.8 % (13-45); MEAN CORPUSCULAR HEMOGLOBIN 26.7 pg (27.0-33.4); MEAN CORPUSCULAR HGB CONC 34.2 g/dL (32.0-36.0); MEAN CORPUSCULAR VOLUME 78 fl (80-97); PLATELET COUNT 168 10^3/uL (150-450); RED BLOOD COUNT 2.96 10^6/uL (4.35-5.55); RED CELL DISTRIBUTION WIDTH 16.3 % (11.5-14.0); SEGMENTED NEUTROPHILS % (AUTO) 15.4 % (42-78); TOTAL CELLS COUNTED % (AUTO) 100 %
[2017-11-29 12:18] LABS: WHITE BLOOD COUNT 0.8 10^3/uL (4.0-10.5)
[2017-11-29 12:19] LABS: HEMOGLOBIN 7.9 g/dL (13.5-17.0)
[2017-11-29] MEDS ORDERED: CYANOCOBALAMIN (VITAMIN B-12) INJ 1000 MCG/1 ML VIAL IM ONE (12:30)
[2017-11-29 12:52] LABS: ANISOCYTOSIS 1+; HYPOCHROMASIA SLIGHT; PLATELET COMMENT ADEQUATE; ROULEAUX SLIGHT
[2017-11-29] MEDS: ACETAMINOPHEN 325 MG TABLET PO PRN ×2 (14:53→22:24)
[2017-11-29 23:05] LABS: ABSOLUTE EOSINOPHILS # (AUTO) 0.1 10^3/uL (0.0-0.6); ABSOLUTE LYMPHOCYTES (AUTO) 0.3 10^3/uL (0.5-4.7); ABSOLUTE MONOCYTES (AUTO) 0.3 10^3/uL (0.1-1.4); ABSOLUTE NEUT (AUTO) 0.1 10^3/uL (1.7-8.2); BASOPHILS % (AUTO) 1.1 % (0-2); EOSINOPHILS % (AUTO) 14.5 % (0-6); HEMOGLOBIN 9.4 g/dL (13.5-17.0); LYMPHOCYTES % (AUTO) 41.6 % (13-45); MEAN CORPUSCULAR HEMOGLOBIN 26.9 pg (27.0-33.4); MEAN CORPUSCULAR HGB CONC 34.6 g/dL (32.0-36.0); MEAN CORPUSCULAR VOLUME 78 fl (80-97); MONOCYTES % (AUTO) 30.8 % (3-13); PLATELET COUNT 169 10^3/uL (150-450); RED BLOOD COUNT 3.47 10^6/uL (4.35-5.55); TOTAL CELLS COUNTED % (AUTO) 100 %
[2017-11-29 23:21] LABS: ANISOCYTOSIS 1+; OVALOCYTES SLIGHT; PLATELET COMMENT ADEQUATE; POIKILOCYTOSIS SLIGHT
[2017-11-29 23:23] LABS: WHITE BLOOD COUNT 0.8 10^3/uL (4.0-10.5)
[2017-11-30 05:10] LABS: HEMATOCRIT 28.9 % (37.9-51.0); HEMOGLOBIN 10.1 g/dL (13.5-17.0); MEAN CORPUSCULAR VOLUME 77 fl (80-97); PLATELET COUNT 176 10^3/uL (150-450); PROTHROMBIN TIME 13.7 SEC (11.4-15.4); RED BLOOD COUNT 3.74 10^6/uL (4.35-5.55)
[2017-11-30 05:29] LABS: ALANINE AMINOTRANSFERASE 58 U/L (21-72); ALBUMIN 2.5 g/dL (3.5-5.0); ALKALINE PHOSPHATASE 50 U/L (38-126); ANION GAP 11 (5-19); ASPARTATE AMINO TRANSFERASE 34 U/L (17-59); BILIRUBIN,DIRECT 0.3 mg/dL (0.0-0.4); BILIRUBIN,TOTAL 0.3 mg/dL (0.2-1.3); BLOOD UREA NITROGEN 10 mg/dL (7-20); CALCIUM 8.5 mg/dL (8.4-10.2); CARBON DIOXIDE 23 mmol/L (22-30); CHLORIDE 108 mmol/L (98-107); GLUCOSE 120 mg/dL (75-110); POTASSIUM 4.1 mmol/L (3.6-5.0); SODIUM 141.6 mmol/L (137-145); TOTAL PROTEIN 5.9 g/dL (6.3-8.2)
[2017-11-30 06:10] LABS: WHITE BLOOD COUNT 0.8 10^3/uL (4.0-10.5)
[2017-11-30] MEDS: METRONIDAZOLE 500 MG/NS RTU 100 ML IV SCH ×4 (06:13→23:11)
[2017-11-30] MEDS: HEPARIN SOD (PORCINE) 5,000 UNIT/ML 1 ML SYRINGE SUBCUT SCH ×2 (06:13→13:34)
[2017-11-30 06:16] LABS: ABSOLUTE LYMPHOCYTES# (MANUAL) 0.4 10^3/uL (0.5-4.7); ABSOLUTE MONOCYTES # (MANUAL) 0.2 10^3/uL (0.1-1.4); ABSOLUTE NEUTROPHILS# (MANUAL) 0.1 10^3/uL (1.7-8.2); BASOPHILS % (MANUAL) 0 % (0-2); EOSINOPHILS % (MANUAL) 14 % (0-6); LYMPHOCYTES % (MANUAL) 48 % (13-45); MONOCYTES % (MANUAL) 26 % (3-13); NUCLEATED RED BLOOD CELLS 2 /100 WBC (0); SEGMENTED NEUTROPHILS % (MAN) 12 % (42-78); TOTAL CELLS COUNTED 50
[2017-11-30 06:17] LABS: POLYCHROMASIA 1+
[2017-11-30 06:18] LABS: ANISOCYTOSIS 1+; PLATELET COMMENT ADEQUATE; POIKILOCYTOSIS SLIGHT; SCHISTOCYTES SLIGHT
[2017-11-30] MEDS: ACETAMINOPHEN 325 MG TABLET PO PRN ×3 (06:19→23:16)
--- NOTE | 2017-11-30 08:22 | RADIOLOGY REPORT (SQ) ---
EXAM DESCRIPTION: U/S ABDOMEN LTD W/DOPPLER COMPLETED DATE/TIME: 11/30/2017 7:45 am REASON FOR STUDY: history of HCV. COMPARISON: None. TECHNIQUE: Dynamic and static grayscale images acquired of the abdomen and recorded on PACS. Additio nal selected color Doppler and spectral images recorded. LIMITATIONS: None. FINDINGS: PANCREAS: No masses. Visualized pancreatic duct normal caliber. LIVER: No masses. Echotexture normal. LIVER VASCULATURE: Normal directional flow of the main portal vein and hepatic veins. GALLBLADDER: No stones. Normal wall thickness. No pericholecystic fluid. ULTRASOUND-DETECTED OLIVERA'S SIGN: Negative. INTRAHEPATIC DUCTS AND COMMON DUCT: CBD and intrahepatic ducts normal caliber. No filling defects. INFERIOR VENA CAVA: Normal flow. AORTA: No aneurysm. RIGHT KIDNEY: Normal size. Normal echogenicity. No solid or suspicious masses. No hydronephrosis. No calcifications. PERITONEAL AND RIGHT PLEURAL SPACE: No ascites or effusions. OTHER: No other significant findings. IMPRESSION: NORMAL RIGHT UPPER QUADRANT ULTRASOUND. TECHNICAL DOCUMENTATION: JOB ID: [id number] [employer]- All Rights Reserved Reading location - IP/workstation name: [facility]-RR
[2017-11-30] MEDS: CYANOCOBALAMIN (VITAMIN B-12) INJ 1000 MCG/1 ML VIAL IM SCH (09:33)
[2017-11-30] MEDS: CEFEPIME 1 GM/D5W RTU 1 GM/50 ML RTUPB IV SCH ×2 (09:33→22:19)
--- NOTE | 2017-11-30 17:15 | PDOC PROGRESS REPORT ---
Subjective Progress Note for:: 11/30/17 Subjective:: Patient's condition is stable He is not febrile In no acute distress No shortness of breath Still neutropenic with a white blood count of 0.8 Reason For Visit: NEUTROPENIA/PNEUMONIA Physical Exam Vital Signs: Temp Pulse Resp BP Pulse Ox 97.7 F 75 12 124/75 100 11/30/17 16:09 11/30/17 16:09 11/30/17 16:00 11/30/17 16:09 11/30/17 16:09 Intake & Output 11/29/17 11/30/17 12/01/17 00:59 00:59 00:59 Intake Total 2155 1929 Balance 2155 1929 Weight 74 kg 75.9 kg General appearance: PRESENT: no acute distress, thin Head exam: PRESENT: atraumatic, normocephalic Eye exam: PRESENT: conjunctiva pale, EOMI, PERRLA Respiratory exam: PRESENT: clear to auscultation matias. ABSENT: rales, rhonchi, wheezes Cardiovascular exam: PRESENT: RRR. ABSENT: diastolic murmur, rubs, systolic murmur Pulses: PRESENT: normal dorsalis pedis pul Vascular exam: PRESENT: normal capillary refill Extremities exam: PRESENT: full ROM. ABSENT: calf tenderness, clubbing, pedal edema Neurological exam: PRESENT: alert, awake, oriented to person, oriented to place , oriented to time, oriented to situation, CN II-XII grossly intact. ABSENT: motor sensory deficit Results Laboratory Results: 11/30/17 04:42 11/30/17 04:42 11/29/17 11/30/17 11/30/17 22:50 04:42 04:42 WBC 0.8 L* 0.8 L* RBC 3.47 L 3.74 L Hgb 9.4 L 10.1 L Hct 27.0 L 28.9 L MCV 78 L 77 L MCH 26.9 L 27.0 MCHC 34.6 35.0 RDW 16.0 H 16.0 H Plt Count 169 176 Seg Neutrophils % 12.0 L Not Reportable Lymphocytes % 41.6 Not Reportable Monocytes % 30.8 H Not Reportable Eosinophils % 14.5 H Not Reportable Basophils % 1.1 Not Reportable Absolute Neutrophils 0.1 L Not Reportable Absolute Lymphocytes 0.3 L Not Reportable Absolute Monocytes 0.3 Not Reportable Absolute Eosinophils 0.1 Not Reportable Absolute Basophils 0.0 Not Reportable Sodium 141.6 Potassium 4.1 Chloride 108 H Carbon Dioxide 23 Anion Gap 11 BUN 10 Creatinine 0.61 Est GFR ( Amer) > 60 Est GFR (Non-Af Amer) > 60 Glucose 120 H Calcium 8.5 Total Bilirubin 0.3 AST 34 ALT 58 Alkaline Phosphatase 50 Total Protein 5.9 L Albumin 2.5 L Stool Occult Blood 11/30/17 08:10 WBC RBC Hgb Hct MCV MCH MCHC RDW Plt Count Seg Neutrophils % Lymphocytes % Monocytes % Eosinophils % Basophils % Absolute Neutrophils Absolute Lymphocytes Absolute Monocytes Absolute Eosinophils Absolute Basophils Sodium Potassium Chloride Carbon Dioxide Anion Gap BUN Creatinine Est GFR ( Amer) Est GFR (Non-Af Amer) Glucose Calcium Total Bilirubin AST ALT Alkaline Phosphatase Total Protein Albumin Stool Occult Blood NEGATIVE Impressions: Chest X-Ray 11/28/17 22:35 IMPRESSION: Mildly increased opacity -consolidation in the lateral aspect of the right upper lobe. No pleural effusion. Chest CT 11/29/17 00:00 IMPRESSION: 1. Right upper lobe and middle lobe airspace disease consistent with acute pneumonia. 2. Bilateral pulmonary nodules, the largest in the left upper lobe of. Too small to biopsy or characterize by PET-CT. Abdomen Ultrasound 11/30/17 00:00 IMPRESSION: NORMAL RIGHT UPPER QUADRANT ULTRASOUND. Assessment & Plan - Diagnosis (1) Hx of hepatitis C Is this a current diagnosis for this admission?: Yes (2) Pancytopenia Is this a current diagnosis for this admission?: Yes (3) Right upper lobe pneumonia Qualifiers: Pneumonia type: due to unspecified organism Qualified Code(s): J18.1 - Lobar pneumonia, unspecified organism Is this a current diagnosis for this admission?: Yes (4) Splenomegaly Is this a current diagnosis for this admission?: Yes (5) Vitamin B12 deficiency Is this a current diagnosis for this admission?: Yes - Time Time Spent with patient: Discussed the case with Dr. Thompson will review hematology slides Patient is still profoundly leukopenic although he clinically looks quite stable We will continue the same management treatment time hoping that the patient will remain in the hospital over the weekend Time Spent with patient: 25-34 minutes
--- NOTE | 2017-11-30 18:02 | PDOC CONSULTATION ---
Consultation Consult Date: 11/30/17 Consult reason:: Hematology/Oncology Consultation was requested for patient with neutropenia and B12 deficiency. History of Present Illness Admission Date/PCP: 11/29/17 00:56 History of Present Illness: MARY SCHROEDER is a 51 year old male. Please see the Consult note from 2017. Patient left the hospital AMA and then returned for further treatment. He again states that he has had Bone Marrow Biopsy in the past and it is very painful and he does NOT wish to have this again. He denies any significant changes from prior exam by me and is again on antibiotics. Today. he is requesting that I start neupogen so that his WBC count will improve and he can go home. Past Medical History GI Medical History: Reports: Hepatitis - Hepatitis C, Other - splenomegaly. Psychiatric Medical History: Comment Only: Depression - anxiety Hematology: Reports: Anemia, Neutropenia Infectious Medical History: Reports: Hepatitis C Denies: HIV Past Surgical History Past Surgical History: Reports: None Social History Lives with: Spouse/Significant other Smoking Status: Current Every Day Smoker Cigarettes Packs Per Day: 0.5 - Cigarettes a day for 43 years. Number of Years Smokin Last Time Smoked: approx 4 days ago Frequency of Alcohol Use: None Hx Recreational Drug Use: No Drugs: None Hx Prescription Drug Abuse: No - Advance Directive Resuscitation Status: Full Code Family History Family History: Reviewed & Not Pertinent Parental Family History Reviewed: Yes Children Family History Reviewed: Yes Sibling(s) Family History Reviewed.: Yes Medication/Allergy Home Medications: No Home Medications 11/28/17 Allergies/Adverse Reactions: No Known Allergies Allergy (Unverified 11/26/17 10:46) Review of Systems Constitutional: PRESENT: fatigue, fever(s) Eyes: ABSENT: visual disturbances Ears: ABSENT: hearing changes Nose, Mouth, and Throat: PRESENT: sore throat Cardiovascular: ABSENT: chest pain Gastrointestinal: ABSENT: abdominal pain Musculoskeletal: PRESENT: back pain, other - Joint pain Integumentary: ABSENT: pruritus, rash Neurological: ABSENT: numbness, tingling Psychiatric: PRESENT: anxiety Hematologic/Lymphatic: ABSENT: lymphadenopathy Physical Exam Vital Signs: Temp Pulse Resp BP Pulse Ox 97.7 F 75 12 124/75 100 11/30/17 16:09 11/30/17 16:09 11/30/17 16:00 11/30/17 16:09 11/30/17 16:09 Intake & Output 11/29/17 11/30/17 12/01/17 06:59 06:59 06:59 Intake Total 150 3936 Balance 150 3936 Weight 74 kg 75.9 kg General appearance: PRESENT: no acute distress, thin Exam: 51 year old male. is at bedside. Head exam: PRESENT: atraumatic Eye exam: PRESENT: PERRLA Ear exam: PRESENT: normal external ear exam Mouth exam: PRESENT: tongue midline Teeth exam: PRESENT: poor dentation Respiratory exam: PRESENT: unlabored Extremities exam: ABSENT: pedal edema Neurological exam: ABSENT: abnormal gait Psychiatric exam: PRESENT: anxious Focused psych exam: PRESENT: pressured speech Skin exam: PRESENT: normal color Results Laboratory Results: 11/30/17 04:42 11/30/17 04:42 11/29/17 11/30/17 11/30/17 22:50 04:42 04:42 WBC 0.8 L* 0.8 L* RBC 3.47 L 3.74 L Hgb 9.4 L 10.1 L Hct 27.0 L 28.9 L MCV 78 L 77 L MCH 26.9 L 27.0 MCHC 34.6 35.0 RDW 16.0 H 16.0 H Plt Count 169 176 Seg Neutrophils % 12.0 L Not Reportable Lymphocytes % 41.6 Not Reportable Monocytes % 30.8 H Not Reportable Eosinophils % 14.5 H Not Reportable Basophils % 1.1 Not Reportable Absolute Neutrophils 0.1 L Not Reportable Absolute Lymphocytes 0.3 L Not Reportable Absolute Monocytes 0.3 Not Reportable Absolute Eosinophils 0.1 Not Reportable Absolute Basophils 0.0 Not Reportable Sodium 141.6 Potassium 4.1 Chloride 108 H Carbon Dioxide 23 Anion Gap 11 BUN 10 Creatinine 0.61 Est GFR ( Amer) > 60 Est GFR (Non-Af Amer) > 60 Glucose 120 H Calcium 8.5 Total Bilirubin 0.3 AST 34 ALT 58 Alkaline Phosphatase 50 Total Protein 5.9 L Albumin 2.5 L Stool Occult Blood 11/30/17 08:10 WBC RBC Hgb Hct MCV MCH MCHC RDW Plt Count Seg Neutrophils % Lymphocytes % Monocytes % Eosinophils % Basophils % Absolute Neutrophils Absolute Lymphocytes Absolute Monocytes Absolute Eosinophils Absolute Basophils Sodium Potassium Chloride Carbon Dioxide Anion Gap BUN Creatinine Est GFR ( Amer) Est GFR (Non-Af Amer) Glucose Calcium Total Bilirubin AST ALT Alkaline Phosphatase Total Protein Albumin Stool Occult Blood NEGATIVE Impressions: Chest X-Ray 11/28/17 22:35 IMPRESSION: Mildly increased opacity -consolidation in the lateral aspect of the right upper lobe. No pleural effusion. Chest CT 11/29/17 00:00 IMPRESSION: 1. Right upper lobe and middle lobe airspace disease consistent with acute pneumonia. 2. Bilateral pulmonary nodules, the largest in the left upper lobe of. Too small to biopsy or characterize by PET-CT. Abdomen Ultrasound 11/30/17 00:00 IMPRESSION: NORMAL RIGHT UPPER QUADRANT ULTRASOUND. Assessment & Plan - Diagnosis (1) Neutropenia associated with infection Is this a current diagnosis for this admission?: Yes Plan: His ANC has not improved and is still at 0.1 Infection and fevers remain. (2) Vitamin B12 deficiency Is this a current diagnosis for this admission?: Yes Plan: His PLT and HGB have improved with IM injections, but his WBC count has not. (3) Hx of hepatitis C Is this a current diagnosis for this admission?: Yes Plan: This has been untreated to date. - Plan Summary Plan Summary: I examined his perif. blood smear. I do not see any obvious blasts. He has atypical lymphocytes, eosinophils, and lymphocytes, but few neutrophils. RBCs and PLT are unremarkable. I have discussed his care with Dr. Bazzi. We have not been able to confirm that he has ever had a bone marrow biopsy. I would prefer to perform this, prior to starting neupogen to rule out an acute leukemia. However, patient refuses this and states that he will sign any kind of a legal waver we would like so that he may go ahead and start on the neupogen now. He understands the risk of if we give this medication and he has leukemia. He states that this has always worked in the past. I will conitnue B12 injections x 7 days total, then weekly x 4. I will start neupogen with parameters to stop for ANC > 1.5 and will watch closely.
[2017-11-30 18:52] LABS: ABSOLUTE EOSINOPHILS # (AUTO) 0.1 10^3/uL (0.0-0.6); ABSOLUTE LYMPHOCYTES (AUTO) 0.3 10^3/uL (0.5-4.7); ABSOLUTE MONOCYTES (AUTO) 0.3 10^3/uL (0.1-1.4); ABSOLUTE NEUT (AUTO) 0.1 10^3/uL (1.7-8.2); BASOPHILS % (AUTO) 1.9 % (0-2); EOSINOPHILS % (AUTO) 11.5 % (0-6); HEMATOCRIT 30.7 % (37.9-51.0); HEMOGLOBIN 10.6 g/dL (13.5-17.0); MEAN CORPUSCULAR HGB CONC 34.6 g/dL (32.0-36.0); MEAN CORPUSCULAR VOLUME 78 fl (80-97); MONOCYTES % (AUTO) 34.5 % (3-13); PLATELET COUNT 206 10^3/uL (150-450); RED BLOOD COUNT 3.93 10^6/uL (4.35-5.55); RED CELL DISTRIBUTION WIDTH 16.1 % (11.5-14.0); SEGMENTED NEUTROPHILS % (AUTO) 13.1 % (42-78); TOTAL CELLS COUNTED % (AUTO) 100 %
[2017-11-30 19:17] LABS: ANISOCYTOSIS 1+; POIKILOCYTOSIS SLIGHT; POLYCHROMASIA SLIGHT
[2017-11-30 19:18] LABS: OVALOCYTES SLIGHT; PLATELET COMMENT ADEQUATE
[2017-11-30 19:20] LABS: WHITE BLOOD COUNT 0.8 10^3/uL (4.0-10.5)
[2017-11-30] MEDS: FILGRASTIM INJ 480 MCG/1.6 ML VIAL SUBCUT SCH (20:05)
[2017-12-01] MEDS: SIMETHICONE 80 MG TAB.CHEW PO PRN ×2 (01:07→20:08)
[2017-12-01] MEDS: METRONIDAZOLE 500 MG/NS RTU 100 ML IV SCH ×4 (06:17→23:00)
[2017-12-01] MEDS: CYANOCOBALAMIN (VITAMIN B-12) INJ 1000 MCG/1 ML VIAL IM SCH (09:46)
[2017-12-01] MEDS: CEFEPIME 1 GM/D5W RTU 1 GM/50 ML RTUPB IV SCH ×2 (09:49→22:32)
[2017-12-01 11:03] LABS: HEMATOCRIT 31.3 % (37.9-51.0); HEMOGLOBIN 10.6 g/dL (13.5-17.0); MEAN CORPUSCULAR HEMOGLOBIN 26.6 pg (27.0-33.4); MEAN CORPUSCULAR HGB CONC 33.7 g/dL (32.0-36.0); MEAN CORPUSCULAR VOLUME 79 fl (80-97); PLATELET COUNT 192 10^3/uL (150-450); RED BLOOD COUNT 3.98 10^6/uL (4.35-5.55); RED CELL DISTRIBUTION WIDTH 16.1 % (11.5-14.0)
[2017-12-01 11:09] LABS: WHITE BLOOD COUNT 1.2 10^3/uL (4.0-10.5)
[2017-12-01 11:40] LABS: ABSOLUTE LYMPHOCYTES# (MANUAL) 0.5 10^3/uL (0.5-4.7); ABSOLUTE MONOCYTES # (MANUAL) 0.2 10^3/uL (0.1-1.4); ABSOLUTE NEUTROPHILS# (MANUAL) 0.4 10^3/uL (1.7-8.2); BASOPHILS % (MANUAL) 0 % (0-2); EOSINOPHILS % (MANUAL) 4 % (0-6); LYMPHOCYTES % (MANUAL) 44 % (13-45); MONOCYTES % (MANUAL) 20 % (3-13); SEGMENTED NEUTROPHILS % (MAN) 32 % (42-78); TOTAL CELLS COUNTED 50
[2017-12-01 11:42] LABS: HYPOCHROMASIA SLIGHT; POLYCHROMASIA 1+; TOXIC GRANULATION SLIGHT; TOXIC VACUOLATION PRESENT
[2017-12-01 11:43] LABS: ANISOCYTOSIS 1+; OVALOCYTES SLIGHT; PLATELET COMMENT ADEQUATE; POIKILOCYTOSIS SLIGHT
[2017-12-01] MEDS: PROMETHAZINE HCL INJ 25 MG/1 ML VIAL IV PRN (12:34)
--- NOTE | 2017-12-01 16:43 | PDOC PROGRESS REPORT ---
Subjective Progress Note for:: 12/01/17 Subjective:: Patient's white count is coming up at 1.2 Is still complaining of some abdominal pain otherwise is doing well No fever no chills No cough Reason For Visit: NEUTROPENIA/PNEUMONIA Physical Exam Vital Signs: Temp Pulse Resp BP Pulse Ox 99.8 F 72 16 107/55 L 97 12/01/17 12:10 12/01/17 14:30 12/01/17 14:30 12/01/17 12:10 12/01/17 14:30 Intake & Output 11/30/17 12/01/17 12/02/17 00:59 00:59 00:59 Intake Total 2156 2760 1252 Balance 2156 2760 1252 Weight 74 kg 75.9 kg 76.2 kg Looks chronically ill Pupils are PERRLA extraocular motor intact Conjunctiva pale Neck supple Heart regular rhythm no murmur no gallop lungs are clear Abdomen soft slight tenderness in the left lower quadrant No CVA tenderness Extremities intact Neuro nonfocal Results Laboratory Results: 12/01/17 10:30 11/30/17 04:42 11/30/17 12/01/17 18:40 10:30 WBC 0.8 L* 1.2 L* RBC 3.93 L 3.98 L Hgb 10.6 L 10.6 L Hct 30.7 L 31.3 L MCV 78 L 79 L MCH 27.0 26.6 L MCHC 34.6 33.7 RDW 16.1 H 16.1 H Plt Count 206 192 Seg Neutrophils % 13.1 L Not Reportable Lymphocytes % 39.0 Not Reportable Monocytes % 34.5 H Not Reportable Eosinophils % 11.5 H Not Reportable Basophils % 1.9 Not Reportable Absolute Neutrophils 0.1 L Not Reportable Absolute Lymphocytes 0.3 L Not Reportable Absolute Monocytes 0.3 Not Reportable Absolute Eosinophils 0.1 Not Reportable Absolute Basophils 0.0 Not Reportable Impressions: Chest X-Ray 11/28/17 22:35 IMPRESSION: Mildly increased opacity -consolidation in the lateral aspect of the right upper lobe. No pleural effusion. Chest CT 11/29/17 00:00 IMPRESSION: 1. Right upper lobe and middle lobe airspace disease consistent with acute pneumonia. 2. Bilateral pulmonary nodules, the largest in the left upper lobe of. Too small to biopsy or characterize by PET-CT. Abdomen Ultrasound 11/30/17 00:00 IMPRESSION: NORMAL RIGHT UPPER QUADRANT ULTRASOUND. Assessment & Plan - Diagnosis (1) Hx of hepatitis C Is this a current diagnosis for this admission?: Yes (2) Pancytopenia Is this a current diagnosis for this admission?: Yes Plan: Patient did receive first dose of neupogen yesterday with improvement Continue present management Follow-up ANC in a.m. (3) Right upper lobe pneumonia Qualifiers: Pneumonia type: due to unspecified organism Qualified Code(s): J18.1 - Lobar pneumonia, unspecified organism Is this a current diagnosis for this admission?: Yes Plan: Continue Flagyl and cefepime (4) Splenomegaly Is this a current diagnosis for this admission?: Yes (5) Vitamin B12 deficiency Is this a current diagnosis for this admission?: Yes Plan: Continue vitamin B12 replacement
[2017-12-01] MEDS: FILGRASTIM INJ 480 MCG/1.6 ML VIAL SUBCUT SCH (20:00)
[2017-12-01] MEDS: ACETAMINOPHEN 325 MG TABLET PO PRN (20:06)
[2017-12-01] MEDS ORDERED: MAG HYDROX/AL HYDROX/SIMETH SUSP 30 ML UDCUP PO PRN (23:54)
[2017-12-02] MEDS: METRONIDAZOLE 500 MG/NS RTU 100 ML IV SCH ×4 (06:30→23:40)
[2017-12-02 07:02] LABS: HEMATOCRIT 29.6 % (37.9-51.0); HEMOGLOBIN 10.6 g/dL (13.5-17.0); MEAN CORPUSCULAR HEMOGLOBIN 27.7 pg (27.0-33.4); MEAN CORPUSCULAR HGB CONC 35.6 g/dL (32.0-36.0); MEAN CORPUSCULAR VOLUME 78 fl (80-97); PLATELET COUNT 144 10^3/uL (150-450); RED BLOOD COUNT 3.81 10^6/uL (4.35-5.55); RED CELL DISTRIBUTION WIDTH 16.4 % (11.5-14.0)
[2017-12-02 07:45] LABS: WHITE BLOOD COUNT 1.3 10^3/uL (4.0-10.5)
[2017-12-02 07:51] LABS: ABSOLUTE LYMPHOCYTES# (MANUAL) 0.5 10^3/uL (0.5-4.7); ABSOLUTE MONOCYTES # (MANUAL) 0.3 10^3/uL (0.1-1.4); ABSOLUTE NEUTROPHILS# (MANUAL) 0.3 10^3/uL (1.7-8.2); BASOPHILS % (MANUAL) 0 % (0-2); EOSINOPHILS % (MANUAL) 8 % (0-6); LYMPHOCYTES % (MANUAL) 42 % (13-45); MONOCYTES % (MANUAL) 24 % (3-13); SEGMENTED NEUTROPHILS % (MAN) 26 % (42-78); TOTAL CELLS COUNTED 50
[2017-12-02 07:54] LABS: TOXIC GRANULATION 1+; TOXIC VACUOLATION PRESENT
[2017-12-02 07:55] LABS: ANISOCYTOSIS 1+; HYPOCHROMASIA SLIGHT; OVALOCYTES SLIGHT; PLATELET COMMENT ADEQUATE; POIKILOCYTOSIS SLIGHT
[2017-12-02] MEDS: GUAIFENESIN 600 MG TABLET.SA PO SCH ×2 (09:16→23:03)
[2017-12-02] MEDS: CYANOCOBALAMIN (VITAMIN B-12) INJ 1000 MCG/1 ML VIAL IM SCH (09:17)
[2017-12-02] MEDS: CEFEPIME 1 GM/D5W RTU 1 GM/50 ML RTUPB IV SCH ×2 (09:17→23:04)
--- NOTE | 2017-12-02 09:20 | PROGRESS NOTE E ---
Progress Note NAME: MARY SCHROEDER : 1965 AGE: 51Y DATE: 12/02/2017 ROOM: 431 SUBJECTIVE: The patient is lying in bed. The patient has multiple complaints stating that it is taking him too long to get well and that he is ready to be discharged from the hospital. The patient does admit to feeling some chest congestion but has not had any cough, has not been producing any sputum. The patient has been having intermittent feelings of fevers throughout the night but denies any chills. Patient does not voice any specific concerns at this time. REVIEW OF SYSTEMS: The rest of the review of systems is negative. MEDICATIONS: Reviewed. OBJECTIVE: GENERAL: The patient is a 51-year-old -[place] male who is awake, alert. He is oriented to person, place, time and situation. He is verbal, conversational, and does not appear to be acute distress. VITAL SIGNS: As follows: Temperature 97.4, pulse 52, respirations 14, blood pressure 100/47, oxygen saturation is 97% on room air. SKIN: Warm and dry. No rash, not diaphoretic. HEENT: Pupils equal, round, reactive to light and accommodation. Conjunctivae are pink. There is no evidence of JVP. CARDIOVASCULAR: Heart is regular. There is no murmur or rub. CHEST: Diminished but symmetrical, unlabored. ABDOMEN: Soft, nontender, nondistended. BACK: No CVA tenderness or sacral edema. EXTREMITIES: No clubbing, cyanosis or edema. PSYCHIATRIC: Appropriate affect, pleasant mood. DIAGNOSTICS: Lab values are as follows: Hematology obtained on 12/02/2017, WBC was 1.4, hemoglobin 10.6, hematocrit 29.6, platelet count is 145,000. Chemistries obtained on 12/02/2017, sodium is 141, potassium 4.1, chloride 108, carbon dioxide 23, BUN 10, creatinine is 0.61, glucose 120, calcium is 8.5, bilirubin is 0.3, AST 34, ALT 58, alk phos 50, total protein 5.9, albumin is 2.5 IMPRESSION AND PLAN: 1. PANCYTOPENIA MOST LIKELY THIS IS SECONDARY TO HEPATIC FAILURE. The patient has received Neupogen. Do appreciate Hematology input on this. Will follow in the a.m. 2. RIGHT UPPER LOBE PNEUMONIA. The patient continues on Flagyl, cefepime. I have added Mucinex as well as a flutter valve at [facility] spirometry in an effort to help the patient clear this up. 3. CHRONIC HEPATITIS C. The patient may have some underlying cirrhosis as he is also hypoalbuminemic. 4. SPLENOMEGALY MOST LIKELY SECONDARY TO THE PATIENT'S HEPATITIS PROCESS. 5. VITAMIN B12 DEFICIENCY. This is being repleted. DISPOSITION: The patient is a FULL CODE. Pending patient's symptomatology and diagnostic findings, we will reevaluate in the a.m. Time spent on this followup including assessment, plan, physical examination, patient education, and review of records, family meeting is 25 minutes. DICTATING PHYSICIAN: OMAR MICHAELS NP [id number] PHY#: [id number] ID: [id number] JOB#: [id number] ACCT: [id number] cc: > MTDD
[2017-12-02] MEDS: FILGRASTIM INJ 480 MCG/1.6 ML VIAL SUBCUT SCH (20:07)
[2017-12-03] MEDS: ACETAMINOPHEN 325 MG TABLET PO PRN (03:07)
[2017-12-03] MEDS: METRONIDAZOLE 500 MG/NS RTU 100 ML IV SCH (05:13)
[2017-12-03] MEDS: PROMETHAZINE HCL INJ 25 MG/1 ML VIAL IV PRN (06:09)
[2017-12-03 07:39] LABS: HEMOGLOBIN 10.7 g/dL (13.5-17.0); MEAN CORPUSCULAR HEMOGLOBIN 26.9 pg (27.0-33.4); MEAN CORPUSCULAR HGB CONC 34.4 g/dL (32.0-36.0); MEAN CORPUSCULAR VOLUME 78 fl (80-97); PLATELET COUNT 147 10^3/uL (150-450); RED BLOOD COUNT 3.97 10^6/uL (4.35-5.55); RED CELL DISTRIBUTION WIDTH 16.1 % (11.5-14.0)
[2017-12-03 07:42] LABS: WHITE BLOOD COUNT 2.6 10^3/uL (4.0-10.5)
[2017-12-03 07:57] LABS: ANION GAP 13 (5-19); BLOOD UREA NITROGEN 7 mg/dL (7-20); CALCIUM 8.8 mg/dL (8.4-10.2); CARBON DIOXIDE 23 mmol/L (22-30); CHLORIDE 106 mmol/L (98-107); GLUCOSE 127 mg/dL (75-110); SODIUM 141.6 mmol/L (137-145)
[2017-12-03 08:05] LABS: ABSOLUTE LYMPHOCYTES# (MANUAL) 0.7 10^3/uL (0.5-4.7); ABSOLUTE MONOCYTES # (MANUAL) 0.3 10^3/uL (0.1-1.4); ABSOLUTE NEUTROPHILS# (MANUAL) 1.5 10^3/uL (1.7-8.2); BAND NEUTROPHILS % (MANUAL) 10 % (3-5); BASOPHILS % (MANUAL) 0 % (0-2); EOSINOPHILS % (MANUAL) 6 % (0-6); LYMPHOCYTES % (MANUAL) 23 % (13-45); METAMYELOCYTES % (MANUAL) 2 % (0); MONOCYTES % (MANUAL) 12 % (3-13); SEGMENTED NEUTROPHILS % (MAN) 45 % (42-78); TOTAL CELLS COUNTED 100
[2017-12-03 08:06] LABS: ANISOCYTOSIS 1+; OVALOCYTES SLIGHT; PLATELET COMMENT DECREASED; POIKILOCYTOSIS SLIGHT; SCHISTOCYTES 1+; TOXIC GRANULATION 1+; TOXIC VACUOLATION PRESENT
--- NOTE | 2017-12-03 08:15 | PDOC PROGRESS REPORT ---
Subjective Progress Note for:: 12/03/17 Subjective:: Patient had 2 episodes of vomiting this morning. He states that he has difficulty sleeping. He is still having bone pain, but not as severe. ROS: No chest pain, No dyspnea. +vomiting. + pain. Reason For Visit: NEUTROPENIA/PNEUMONIA Physical Exam Vital Signs: Temp Pulse Resp BP Pulse Ox 98.1 F 72 20 127/68 H 100 12/03/17 07:49 12/03/17 07:49 12/03/17 07:49 12/03/17 07:49 12/03/17 07:49 Intake & Output 12/02/17 12/03/17 12/04/17 06:59 06:59 06:59 Intake Total 2348 1192 Balance 2348 1192 Weight 69.5 kg General appearance: PRESENT: no acute distress, well-developed Respiratory exam: PRESENT: unlabored Extremities exam: ABSENT: pedal edema Neurological exam: PRESENT: awake, oriented to person, oriented to place, oriented to situation Psychiatric exam: PRESENT: appropriate affect Skin exam: PRESENT: normal color Results Laboratory Results: 12/03/17 06:57 12/03/17 06:57 12/03/17 12/03/17 06:57 06:57 WBC 2.6 L D RBC 3.97 L Hgb 10.7 L Hct 31.0 L MCV 78 L MCH 26.9 L MCHC 34.4 RDW 16.1 H Plt Count 147 L Seg Neutrophils % Not Reportable Lymphocytes % Not Reportable Monocytes % Not Reportable Eosinophils % Not Reportable Basophils % Not Reportable Absolute Neutrophils Not Reportable Absolute Lymphocytes Not Reportable Absolute Monocytes Not Reportable Absolute Eosinophils Not Reportable Absolute Basophils Not Reportable Sodium 141.6 Potassium 4.0 Chloride 106 Carbon Dioxide 23 Anion Gap 13 BUN 7 Creatinine 0.62 Est GFR ( Amer) > 60 Est GFR (Non-Af Amer) > 60 Glucose 127 H Calcium 8.8 Magnesium 1.8 Impressions: Chest X-Ray 11/28/17 22:35 IMPRESSION: Mildly increased opacity -consolidation in the lateral aspect of the right upper lobe. No pleural effusion. Chest CT 11/29/17 00:00 IMPRESSION: 1. Right upper lobe and middle lobe airspace disease consistent with acute pneumonia. 2. Bilateral pulmonary nodules, the largest in the left upper lobe of. Too small to biopsy or characterize by PET-CT. Abdomen Ultrasound 11/30/17 00:00 IMPRESSION: NORMAL RIGHT UPPER QUADRANT ULTRASOUND. Assessment & Plan - Diagnosis (1) Neutropenia associated with infection Is this a current diagnosis for this admission?: Yes Plan: ANC now 1.5 after neupogen. I would give today's dose, then stop the neupogen. He has been afebrile now for 24 hours, so theoretically he should be safe to change to PO antibiotics and be discharged. However, unsure what may happen once neupogen is stopped. I am still concerned that there may be an underlying bone marrow process going on. I do not believe he has seen GI for treatment of his HCV. This needs to be done at some point in the future. (2) Vitamin B12 deficiency Is this a current diagnosis for this admission?: Yes Plan: Stop IM injections at time of discharge and I will arrange for these to continue monthly as an outpatient. (3) Hx of hepatitis C Is this a current diagnosis for this admission?: Yes Plan: He will still need to see GI for this.
[2017-12-03] MEDS ORDERED: ONDANSETRON HCL INJ/PF 4 MG/2 ML SDV ONE (09:09)
[2017-12-03] MEDS: CEFEPIME 1 GM/D5W RTU 1 GM/50 ML RTUPB IV SCH (10:16)
[2017-12-03] MEDS: CYANOCOBALAMIN (VITAMIN B-12) INJ 1000 MCG/1 ML VIAL IM SCH (10:27)
[2017-12-03] MEDS: GUAIFENESIN 600 MG TABLET.SA PO SCH (10:27)
[2017-12-03 11:23] VITALS: BP 100/47
--- NOTE | 2017-12-03 12:26 | PDOC DISCHARGE SUMMARY ---
General - Admit/Disc Date/PCP Admission Date/Primary Care Provider: 11/29/17 00:56 Discharge Date: 12/03/17 - Discharge Diagnosis (1) Hx of hepatitis C Is this a current diagnosis for this admission?: Yes (2) Pancytopenia Is this a current diagnosis for this admission?: Yes (3) Right upper lobe pneumonia Is this a current diagnosis for this admission?: Yes (4) Splenomegaly Is this a current diagnosis for this admission?: Yes (5) Vitamin B12 deficiency Is this a current diagnosis for this admission?: Yes - Additional Information Resuscitation Status: Full Code Discharge Diet: As Tolerated, Regular Discharge Activity: Activity As Tolerated Prescriptions: Cyanocobalamin (Vitamin B-12) [Vitamin B12] 2,500 mcg PO DAILY #30 tab.chew Levofloxacin [Levaquin 750 mg Tablet] 750 mg PO DAILY #7 tablet Metronidazole [Flagyl 500 mg Tablet] 500 mg PO TID #21 tablet Home Medications: Cyanocobalamin (Vitamin B-12) [Vitamin B12] 2,500 mcg PO DAILY #30 tab.chew Levofloxacin [Levaquin 750 mg Tablet] 750 mg PO DAILY #7 tablet 12/03/17 Metronidazole [Flagyl 500 mg Tablet] 500 mg PO TID #21 tablet 12/03/17 History of Present Illness Patient complains of: fever leukopenia History of Present Illness: MARY SCHROEDER is a 51 year old male smoker with a history of HCV (untreated) was readmitted with above-mentioned complaints. The patient was last hospitalized here from 11/26/2017 to 11/28/2017 with pancytopenia and RUL pneumonia. He signed AMA despite the fact that he was advised to stay till he is afebrile for at least 24 hours with ANC more than 1.0. He apparently was concerned about his not answering her phone, having relocated from [place] recently. According to the ED physician, the patient had a fever at home so his brought him back to the hospital but the patient denied feeling feverish. He also denied any chills, cough, sputum, shortness of breath or chest pain. He only complained of having nausea and feeling very weak but again denied any abdominal pain per se, vomiting, diarrhea or constipation or any urinary symptoms or focal deficits. In the ED, his temperature was 99, heart rate 99, respiratory rate 20, blood pressure 135/65 with oxygen saturation of 97% on room air. His WBC was 0.9 with hemoglobin of 7.9 (down from 9.0 earlier in the morning). A chest x-ray was done which showed mild worsening in the right upper lobe infiltrate. He received 1250 mg IV Vanco x1 and 2 gm IV Cefepime x1. Hospital Course Hospital Course: (1) Hx of hepatitis C Chronic hepatitis C untreated 11/26/17 11/27/17 11/27/17 13:30 04:48 04:48 Vitamin B12 167.0 L Hepatitis C Antibody >11.0 H Liver Fibrosis Comment Liver Fibrosis Limits Hepatitis C Genotype HIV 1&2 Antibody NEGATIVE 11/28/17 11/28/17 04:46 04:46 Vitamin B12 Hepatitis C Antibody Liver Fibrosis Comment Comment Liver Fibrosis Limits Comment Hepatitis C Genotype 1a HIV 1&2 Antibody Patient needs referral for treatment He was referred [facility]-up (2) Pancytopenia Neutropenia Likely secondary to chronic hepatitis C Patient responded nicely to Neupogen At discharge his ANC is 1.3 11/29/17 12/03/17 22:50 06:57 WBC 0.8 L* 2.6 L D Seg Neutrophils % 12.0 L Seg Neuts % (Manual) 45 Anemia Patient was transfused 2 units of packed red cells during his hospital stay Anemia of chronic disease Anemia also secondary to severe vitamin B12 deficiency B12 was replaced 11/27/17 11/29/17 12/02/17 04:48 11:29 06:42 Hgb 7.9 L 10.6 L Hct 23.2 L 29.6 L Vitamin B12 167.0 L Folate 13.40 (3) Right upper lobe pneumonia thought to be secondary to aspiration pneumonia and dental abscess Patient was treated with cefepime and Flagyl he will be discharged with 7 days of Flagyl and Levaquin Patient should be referred to oral surgery after discharge (4) Splenomegaly (5) Vitamin B12 deficiency See above Discharge home vitamin B12 replacement Suggest repeat CBC in 1 month Patient was referred to hematology at discharge Physical Exam Vital Signs: Temp Pulse Resp BP Pulse Ox 98.1 F 72 20 100/47 L 100 12/03/17 11:22 12/03/17 11:22 12/03/17 11:22 12/03/17 11:22 12/03/17 11:22 Intake & Output 12/02/17 12/03/17 12/04/17 00:59 00:59 00:59 Intake Total 3000 1792 Balance 3000 1792 Weight 76.2 kg 69.5 kg Looks chronically ill Pupils are PERRLA extraocular motor intact Conjunctiva pale Neck supple Heart regular rhythm no murmur no gallop lungs are clear Abdomen soft slight tenderness in the left lower quadrant No CVA tenderness Extremities intact Neuro nonfocal Results Laboratory Results: 12/03/17 06:57 12/03/17 06:57 12/03/17 12/03/17 06:57 06:57 WBC 2.6 L D RBC 3.97 L Hgb 10.7 L Hct 31.0 L MCV 78 L MCH 26.9 L MCHC 34.4 RDW 16.1 H Plt Count 147 L Seg Neutrophils % Not Reportable Lymphocytes % Not Reportable Monocytes % Not Reportable Eosinophils % Not Reportable Basophils % Not Reportable Absolute Neutrophils Not Reportable Absolute Lymphocytes Not Reportable Absolute Monocytes Not Reportable Absolute Eosinophils Not Reportable Absolute Basophils Not Reportable Sodium 141.6 Potassium 4.0 Chloride 106 Carbon Dioxide 23 Anion Gap 13 BUN 7 Creatinine 0.62 Est GFR ( Amer) > 60 Est GFR (Non-Af Amer) > 60 Glucose 127 H Calcium 8.8 Magnesium 1.8 Impressions: Chest X-Ray 11/28/17 22:35 IMPRESSION: Mildly increased opacity -consolidation in the lateral aspect of the right upper lobe. No pleural effusion. Chest CT 11/29/17 00:00 IMPRESSION: 1. Right upper lobe and middle lobe airspace disease consistent with acute pneumonia. 2. Bilateral pulmonary nodules, the largest in the left upper lobe of. Too small to biopsy or characterize by PET-CT. Abdomen Ultrasound 11/30/17 00:00 IMPRESSION: NORMAL RIGHT UPPER QUADRANT ULTRASOUND. Qualifiers - * PATEINT BEING DISCHARGED WITH ANY OF THE FOLLOWING DIAGNOSIS?: No
== END 2017-12-03 12:30 | disposition home or self-care (01) | DRG 441 ==
LOC: ER 21:10 → EH 11-29 00:56 → 4S 11-29 02:55 → 2S 12-02 22:15
PROVIDERS: ADMIT Internal Medicine Geriatric Medicine; ATTEND Internal Medicine Geriatric Medicine
PROC: 30233N1 Transfusion of Nonautologous Red Blood Cells into Peripheral Vein, Percutaneous Approach (ICD-10-PCS; principal; 2017-11-29)
DX: B19.20 Unspecified viral hepatitis C without hepatic coma (principal); J18.1 Lobar pneumonia, unspecified organism; D61.818 Other pancytopenia; R16.1 Splenomegaly, not elsewhere classified; D64.9 Anemia, unspecified; E53.8 Deficiency of other specified B group vitamins; F17.210 Nicotine dependence, cigarettes, uncomplicated
CPT/HCPCS: 36415; 36430; 71045; 71260; 76705; 80048; 80053; 82272; 82962; 83735; 85025; 85610; 86850; 86900; 86901; 86920; 93976; 94667; 94799; 96365; 96366; 96368; 99285; J0692; J1442; J1644; J2405; J2550; J3370; J3420; P9016

== ENCOUNTER 2017-12-06 04:58 | Emergency (ER) | payer OTHER ==
[2017-12-06 05:19] VITALS: BP 131/77
--- NOTE | 2017-12-06 05:33 | ER Document Report ---
ED General - General Chief Complaint: Flank Pain Stated Complaint: FLANK PAIN Time Seen by Provider: 12/06/17 05:20 TRAVEL OUTSIDE OF THE [place] IN LAST 30 DAYS: No - Related Data Allergies/Adverse Reactions: No Known Allergies Allergy (Unverified 11/26/17 10:46) Past Medical History - Social History Smoking Status: Never Smoker Family History: Reviewed & Not Pertinent Renal/ Medical History: Denies: Hx Peritoneal Dialysis GI Medical History: Reports: Hx Hepatitis - Hepatitis C Psychiatric Medical History: Comment Only: Hx Depression - anxiety Infectious Medical History: Reports: Hx Hepatitis - Hepatitis C. Denies: Hx HIV Review of Systems - Review of Systems -: Yes All other systems reviewed and negative Physical Exam - Vital signs Vitals: Temp Pulse Resp BP Pulse Ox 97.7 F 77 18 131/77 H 99 12/06/17 05:18 12/06/17 05:18 12/06/17 05:18 12/06/17 05:18 12/06/17 05:18 Course - Vital Signs Vital signs: Temp Pulse Resp BP Pulse Ox 97.7 F 77 18 131/77 H 99 12/06/17 05:18 12/06/17 05:18 12/06/17 05:18 12/06/17 05:18 12/06/17 05:18 - Laboratory Result Diagrams: 12/06/17 05:19 12/06/17 05:19
--- NOTE | 2017-12-06 05:55 | ER Document Report ---
ED Medical Screen (RME) - General TRAVEL OUTSIDE OF THE [place] IN LAST 30 DAYS: No <JUAN RAMON DEAN - Last Filed: 12/06/17 05:55> <DONTEJOVI MANDEL - Last Filed: 12/06/17 07:19> - General Chief Complaint: Flank Pain Stated Complaint: FLANK PAIN Time Seen by Provider: 12/06/17 05:20 - HPI Notes: 12/06/17 05:55 Patient is a 51-year-old male with a history of untreated hepatitis C, pancytopenia, splenomegaly, recent diagnosis of right upper lobe pneumonia and currently on Levaquin/Flagyl who presents to the ED complaining of left flank/ abdominal pain that does not radiate. Patient states that the pain is worsened with twisting movements and with pushing in that area. Patient does not know of any obvious injury, but states that he was lifting heavy objects yesterday. Patient has been eating and drinking without any difficulties otherwise. He has been urinating normally and having normal bowel movements. Denies any drug allergies. Patient has noted to be noncompliant with follow-ups and recommended treatments. No other concerns or complaints at this time. Denies any headache, fever, neck pain, URI, sore throat, chest pain, palpitations, syncope, cough, shortness of breath, wheeze, dyspnea, nausea/vomiting/diarrhea, urinary retention, dysuria, hematuria, loss of control of bowel or bladder, numbness/tingling, saddle anesthesia, muscle paralysis/weakness, or rash. I have treated and performed a rapid initial assessment of this patient. A comprehensive ED assessment and evaluation of the patient, analysis of test results and completion of medical decision making process will be conducted by additional ED providers. PE: LUNGS: Breath sounds clear to auscultation bilaterally and equal. No wheezes rales or rhonchi. HEART: Regular rate and rhythm without murmurs, rubs, gallops. ABDOMEN: Soft abdomen. No guarding, no rebound. No masses appreciated. Normal bowel sounds present. No CVA tenderness bilaterally. + moderate tenderness to the left lower rib to palp and surrounding musculoskeletal area, correlates with pain described. No tenderness to the LLQ, RLQ, Epigastrum, RUQ , or lissy-umibilical area. No obvious hernia noted. Labs and imaging ordered. (JUAN RAMON DEAN) - Related Data Allergies/Adverse Reactions: No Known Allergies Allergy (Unverified 11/26/17 10:46) Past Medical History - Social History Chew tobacco use (# tins/day): No Frequency of alcohol use: None Drug Abuse: None Renal/ Medical History: Denies: Hx Peritoneal Dialysis GI Medical History: Reports: Hx Hepatitis - Hepatitis C Psychiatric Medical History: Comment Only: Hx Depression - anxiety Infectious Medical History: Reports: Hx Hepatitis - Hepatitis C. Denies: Hx HIV - Immunizations History of Influenza Vaccine for 05/2017 - 10/2017 Season: No <JUAN RAMON DEAN - Last Filed: 12/06/17 05:55> - Vital signs Vitals: Temp Pulse Resp BP Pulse Ox 97.7 F 77 18 131/77 H 99 12/06/17 05:18 12/06/17 05:18 12/06/17 05:18 12/06/17 05:18 12/06/17 05:18 Course - Laboratory Result Diagrams: 12/06/17 05:19 12/06/17 05:19 <JUAN RAMON DEAN - Last Filed: 12/06/17 05:55> - Laboratory Result Diagrams: 12/06/17 05:19 12/06/17 05:19 <JOVI CROCKETT - Last Filed: 12/06/17 07:19> - Vital Signs Vital signs: Temp Pulse Resp BP Pulse Ox 97.7 F 77 18 131/77 H 99 12/06/17 05:18 12/06/17 05:18 12/06/17 05:18 12/06/17 05:18 12/06/17 05:18 - Laboratory Laboratory results interpreted by id: 12/06/17 12/06/17 12/06/17 05:19 05:19 05:19 Hgb 11.7 L Hct 34.5 L MCV 79 L MCH 26.6 L RDW 16.5 H Band Neutrophils % 1 L Myelocytes % 1 H Total Bilirubin 0.1 L Albumin 3.4 L Urine Ascorbic Acid 20 H
[2017-12-06 05:58] LABS: APPEARANCE,URINE CLEAR; BILIRUBIN,URINE NEGATIVE (NEGATIVE); COLOR,URINE YELLOW; GLUCOSE, URINE NEGATIVE (NEGATIVE); HEMATOCRIT 34.5 % (37.9-51.0); HEMOGLOBIN 11.7 g/dL (13.5-17.0); KETONES,URINE NEGATIVE (NEGATIVE); LEUKOCYTE ESTERASE,URINE NEGATIVE (NEGATIVE); MEAN CORPUSCULAR HEMOGLOBIN 26.6 pg (27.0-33.4); MEAN CORPUSCULAR HGB CONC 33.8 g/dL (32.0-36.0); MEAN CORPUSCULAR VOLUME 79 fl (80-97); NITRITE,URINE NEGATIVE (NEGATIVE); PLATELET COUNT 206 10^3/uL (150-450); PROTEIN,URINE NEGATIVE (NEGATIVE); RED BLOOD COUNT 4.38 10^6/uL (4.35-5.55); RED CELL DISTRIBUTION WIDTH 16.5 % (11.5-14.0); URINE SPECIFIC GRAVITY 1.013; UROBILINOGEN,URINE NEGATIVE mg/dL (<2.0)
[2017-12-06 05:59] LABS: WHITE BLOOD COUNT 5.8 10^3/uL (4.0-10.5)
[2017-12-06 06:02] LABS: ALANINE AMINOTRANSFERASE 38 U/L (21-72); ALBUMIN 3.4 g/dL (3.5-5.0); ALKALINE PHOSPHATASE 80 U/L (38-126); ANION GAP 12 (5-19); ASPARTATE AMINO TRANSFERASE 29 U/L (17-59); BILIRUBIN,DIRECT 0.1 mg/dL (0.0-0.4); BILIRUBIN,TOTAL 0.1 mg/dL (0.2-1.3); BLOOD UREA NITROGEN 10 mg/dL (7-20); CALCIUM 8.8 mg/dL (8.4-10.2); CARBON DIOXIDE 28 mmol/L (22-30); CHLORIDE 102 mmol/L (98-107); GLUCOSE 108 mg/dL (75-110); POTASSIUM 4.7 mmol/L (3.6-5.0); SODIUM 141.5 mmol/L (137-145); TOTAL PROTEIN 7.3 g/dL (6.3-8.2)
[2017-12-06 06:31] LABS: ABSOLUTE LYMPHOCYTES# (MANUAL) 1.7 10^3/uL (0.5-4.7); ABSOLUTE MONOCYTES # (MANUAL) 0.5 10^3/uL (0.1-1.4); ABSOLUTE NEUTROPHILS# (MANUAL) 3.5 10^3/uL (1.7-8.2); BAND NEUTROPHILS % (MANUAL) 1 % (3-5); BASOPHILS % (MANUAL) 0 % (0-2); EOSINOPHILS % (MANUAL) 2 % (0-6); LYMPHOCYTES % (MANUAL) 30 % (13-45); MONOCYTES % (MANUAL) 8 % (3-13); SEGMENTED NEUTROPHILS % (MAN) 58 % (42-78); TOTAL CELLS COUNTED 100
--- NOTE | 2017-12-06 06:31 | RADIOLOGY REPORT (SQ) ---
EXAM DESCRIPTION: RIBS LEFT W/PA CHEST CLINICAL HISTORY: 51 years, Male, Left lower rib pain, recent RUL pneumonia COMPARISON: 11.28.17 Technique: Three images. LIMITATIONS: None. FINDINGS: Moderate right upper lobar airspace opacity with some improved aeration compared with prior exam from 11/28/2017. Normal cardiac silhouette. Atherosclerosis. Intact bony thorax. No displaced rib deformity on the left. No pneumothorax. IMPRESSION: Improving right upper lobar pneumonia.
[2017-12-06 06:34] LABS: ANISOCYTOSIS 1+; HYPOCHROMASIA SLIGHT; POLYCHROMASIA SLIGHT
[2017-12-06 06:35] LABS: PLATELET COMMENT ADEQUATE
[2017-12-06 06:36] LABS: MYELOCYTES % (MANUAL) 1 % (0)
--- NOTE | 2017-12-06 06:37 | RADIOLOGY REPORT (SQ) ---
EXAM DESCRIPTION: U/S ABDOMEN LIMITED W/O DOP CLINICAL HISTORY: 51 years, Male, Left abdominal pain COMPARISON: CT, November 26, 2017 FINDINGS: 16.6 cm spleen includes a heterogeneous hypoechoic macrolobulated area superiorly measuring 5.6 x 5.2 x 3.5 cm which may indicate splenic infarct or chronic injury. There is no vascularity. No subcapsular fluid. No kendall ascites. 10.4 cm left kidney is unremarkable. IMPRESSION: 16.6 cm splenomegaly with 5.6 cm hypoechoic defect of the upper spleen which may indicate splenic infarct or chronic injury.
[2017-12-06] MEDS ORDERED: MORPHINE SULFATE 10 MG/ML INJ IV ONE (06:46)
[2017-12-06] MEDS ORDERED: METOCLOPRAMIDE HCL INJ/PF 10 MG/2 ML SDV IV ONE (06:46)
[2017-12-06] MEDS ORDERED: CEFTRIAXONE INJ 1000 MG VIAL ONE (07:13)
[2017-12-06] MEDS ORDERED: CEFTRIAXONE 1 GM/D5W RTU 1 GM/50 ML RTUPB IV ONE (07:30)
--- NOTE | 2017-12-06 08:01 | ER Document Report ---
ED General - General Chief Complaint: Flank Pain Stated Complaint: FLANK PAIN Time Seen by Provider: 12/06/17 05:20 TRAVEL OUTSIDE OF THE [place] IN LAST 30 DAYS: No - Related Data Allergies/Adverse Reactions: No Known Allergies Allergy (Unverified 11/26/17 10:46) Past Medical History - Social History Smoking Status: Current Every Day Smoker Chew tobacco use (# tins/day): No Frequency of alcohol use: None Drug Abuse: None Family History: Reviewed & Not Pertinent Patient has suicidal ideation: No Patient has homicidal ideation: No Renal/ Medical History: Denies: Hx Peritoneal Dialysis GI Medical History: Reports: Hx Hepatitis - Hepatitis C Psychiatric Medical History: Comment Only: Hx Depression - anxiety Infectious Medical History: Reports: Hx Hepatitis - Hepatitis C. Denies: Hx HIV Physical Exam - Vital signs Vitals: Temp Pulse Resp BP Pulse Ox 97.7 F 77 18 131/77 H 99 12/06/17 05:18 12/06/17 05:18 12/06/17 05:18 12/06/17 05:18 12/06/17 05:18 Course - Vital Signs Vital signs: Temp Pulse Resp BP Pulse Ox 97.7 F 77 18 131/77 H 99 12/06/17 05:18 12/06/17 05:18 12/06/17 05:18 12/06/17 05:18 12/06/17 05:18 - Laboratory Result Diagrams: 12/06/17 05:19 12/06/17 05:19 Laboratory results interpreted by me: 12/06/17 12/06/17 12/06/17 05:19 05:19 05:19 Hgb 11.7 L Hct 34.5 L MCV 79 L MCH 26.6 L RDW 16.5 H Band Neutrophils % 1 L Myelocytes % 1 H Total Bilirubin 0.1 L Albumin 3.4 L Urine Ascorbic Acid 20 H
--- NOTE | 2017-12-06 08:03 | ER Document Report ---
ED GI/ - General Chief Complaint: Flank Pain Stated Complaint: FLANK PAIN Time Seen by Provider: 12/06/17 05:20 Notes: History of complain: REVIEW OF SYSTEMS:Patient is a 51-year-old male with a history of untreated hepatitis C, pancytopenia, splenomegaly, recent diagnosis of right upper lobe pneumonia and currently on Levaquin/Flagyl who presents to the ED complaining of left flank/abdominal pain that does not radiate. Patient states that the pain is worsened with twisting movements and with pushing in that area. Patient does not know of any obvious injury, but states that he was lifting heavy objects yesterday. Patient has been eating and drinking without any difficulties otherwise. He has been urinating normally and having normal bowel movements. Denies any drug allergies. Patient has noted to be noncompliant with follow-ups and recommended treatments. No other concerns or complaints at this time. Denies any headache, fever, neck pain, URI, sore throat, chest pain , palpitations, syncope, cough, shortness of breath, wheeze, dyspnea, nausea/ vomiting/diarrhea, urinary retention, dysuria, hematuria, loss of control of bowel or bladder, numbness/tingling, saddle anesthesia, muscle paralysis/ weakness, or rash. CONSTITUTIONAL : Denies fever, chills, or sweats. Denies recent illness. EENT: Denies eye, ear, throat, or mouth pain or symptoms. Denies nasal or sinus congestion or discharge. Denies throat, tongue, or mouth swelling or difficulty swallowing. CARDIOVASCULAR: Denies chest pain. Denies palpitations or racing or irregular heart beat. Denies ankle edema. RESPIRATORY: Denies cough, cold, or chest congestion. Denies shortness of breath, difficulty breathing, or wheezing. GASTROINTESTINAL: Denies abdominal pain or distention. Denies nausea, vomiting , or diarrhea. Denies blood in vomitus, stools, or per rectum. Denies black, tarry stools. Denies constipation. GENITOURINARY: Denies difficulty urinating, painful urination, burning, frequency, blood in urine, or discharge. MUSCULOSKELETAL: Denies back or neck pain or stiffness. Denies joint pain or swelling. SKIN: Denies rash, lesions or sores. HEMATOLOGIC : Denies easy bruising or bleeding. LYMPHATIC: Denies swollen, enlarged glands. NEUROLOGICAL: Denies confusion or altered mental status. Denies passing out or loss of consciousness. Denies dizziness or lightheadedness. Denies headache. Denies weakness or paralysis or loss of use of either side. Denies problems with gait or speech. Denies sensory loss, numbness, or tingling. Denies seizures. PSYCHIATRIC: Denies anxiety or stress. Denies depression, suicidal ideation, or homicidal ideation. ALL OTHER SYSTEMS REVIEWED AND NEGATIVE. Dictation was performed using [employer] voice recognition software PHYSICAL EXAMINATION: GENERAL: Well-appearing, well-nourished and in no acute distress. HEAD: Atraumatic, normocephalic. EYES: Pupils equal round and reactive to light, extraocular movements intact, sclera anicteric, conjunctiva are normal. ENT: Nares patent, oropharynx clear without exudates. Moist mucous membranes. NECK: Normal range of motion, supple without lymphadenopathy LUNGS: Breath sounds clear to auscultation bilaterally and equal. No wheezes rales or rhonchi. HEART: Regular rate and rhythm without murmurs ABDOMEN: Soft, sharp tenderness noted on the left flank at the splenic flexure region.. No guarding, no rebound. No masses appreciated. Musculoskeletal: Normal range of motion, no pitting or edema. No cyanosis. NEUROLOGICAL: Cranial nerves grossly intact. Normal speech, normal gait. Normal sensory, motor exams PSYCH: Normal mood, normal affect. SKIN: Warm, Dry, normal turgor, no rashes or lesions noted. TRAVEL OUTSIDE OF THE [place] IN LAST 30 DAYS: No - HPI Patient complains to provider of: Abdominal pain Onset: Last week Timing/Duration: Persistent Severity at maximum: Severe Pain Level: 4 Context: denies: Bad food, Lifting, Out of the country travel, , Recent trauma, Other Location: LUQ. No: Chest pain, Epigastric, LLQ, RUQ, RLQ, Left flank, Right flank, Low back, Suprapubic, Pelvis, Left testicle, Right testicle, Rectal, Other - Related Data Allergies/Adverse Reactions: No Known Allergies Allergy (Unverified 11/26/17 10:46) Past Medical History - Social History Smoking Status: Current Every Day Smoker Chew tobacco use (# tins/day): No Frequency of alcohol use: None Drug Abuse: None Family History: Reviewed & Not Pertinent Patient has suicidal ideation: No Patient has homicidal ideation: No Renal/ Medical History: Denies: Hx Peritoneal Dialysis GI Medical History: Reports: Hx Hepatitis - Hepatitis C Psychiatric Medical History: Comment Only: Hx Depression - anxiety Infectious Medical History: Reports: Hx Hepatitis - Hepatitis C. Denies: Hx HIV Review of Systems - Review of Systems Constitutional: denies: No symptoms reported, See HPI, Chills, Diaphoresis, Fever, Malaise, Weakness, Other, Weight gain, Weight loss, Recent illness EENT: denies: No symptoms reported, See HPI, Eye pain, Eye discharge, Blurred vision, Tearing, Double vision, Ear pain, Ear discharge, Nose pain, Nose congestion, Nose discharge, Sinus pressure, Sinus discharge, Throat pain, Difficulty swallowing, Throat swelling, Mouth pain, Mouth swelling, Dental problem, Vertigo, Other Cardiovascular: denies: No symptoms reported, See HPI, Chest pain, Palpitations , Heart racing, Orthopnea, Dyspnea, Syncope, Dizziness, Lightheaded, Edema, Other, Paroxysmal Nocturnal Dysp Respiratory: See HPI Gastrointestinal: See HPI Genitourinary: denies: No symptoms reported, See HPI, Burning, Dysuria, Discharge, Frequency, Flank pain, Hematuria, Incontinence, Pain, Urgency, Retention, Other Male Genitourinary: denies: No symptoms reported, See HPI, Erectile dysfunction , Testicular pain, Penile discharge, Other Physical Exam - Vital signs Vitals: Temp Pulse Resp BP Pulse Ox 97.7 F 77 18 131/77 H 99 12/06/17 05:18 12/06/17 05:18 12/06/17 05:18 12/06/17 05:18 12/06/17 05:18 Course - Re-evaluation Re-evalutation: 12/06/17 08:37 Patient left AGAINST MEDICAL ADVICE, without even signing the papers. - Vital Signs Vital signs: Temp Pulse Resp BP Pulse Ox 97.7 F 77 18 131/77 H 99 12/06/17 05:18 12/06/17 05:18 12/06/17 05:18 12/06/17 05:18 12/06/17 05:18 - Laboratory Result Diagrams: 12/06/17 05:19 12/06/17 05:19 Laboratory results interpreted by me: 12/06/17 12/06/17 12/06/17 05:19 05:19 05:19 Hgb 11.7 L Hct 34.5 L MCV 79 L MCH 26.6 L RDW 16.5 H Band Neutrophils % 1 L Myelocytes % 1 H Total Bilirubin 0.1 L Albumin 3.4 L Urine Ascorbic Acid 20 H - Diagnostic Test Radiology reviewed: Reports reviewed Radiology results interpreted by me: 12/06/17 08:06 Ultrasound of the abdomen reported by radiologist as splenic infarct. Discharge - Discharge Clinical Impression: Splenic infarct Disposition: ELOPED
[2017-12-06 08:38] LABS: INTERNATIONAL RATION (INR) 0.96; PROTHROMBIN TIME 13.3 SEC (11.4-15.4)
== END 2017-12-06 08:37 | disposition left against medical advice (07) ==
LOC: ER 04:58
DX: D73.5 Infarction of spleen (principal); Z53.21 Procedure and treatment not carried out due to patient leaving prior to being seen by health care provider; R10.9 Unspecified abdominal pain; B19.20 Unspecified viral hepatitis C without hepatic coma; Z79.899 Other long term (current) drug therapy; X50.0XXA Overexertion from strenuous movement or load, initial encounter; F17.200 Nicotine dependence, unspecified, uncomplicated
CPT/HCPCS: 99284; 96372; 96374; 96375; 36415; 85025; 85610; 80053; 81001; 71101; 76705; J2765; J2270; J0696

== ENCOUNTER 2017-12-07 21:19 | Emergency (ER) | payer OTHER ==
[2017-12-07] MEDS ORDERED: MORPHINE SULFATE 10 MG/ML INJ IV ONE (22:40)
[2017-12-07] MEDS ORDERED: ONDANSETRON HCL INJ/PF 4 MG/2 ML SDV IV ONE (22:41)
--- NOTE | 2017-12-07 22:41 | ER Document Report ---
ED General - General Chief Complaint: Abdominal Pain Stated Complaint: POSSIBLE BOCKED BLOOD VESSSEL Time Seen by Provider: 12/07/17 22:33 Notes: Patient is a 51-year-old male comes emergency department for chief complaint of pain in his left mid upper abdomen, he states he was evaluated yesterday and had an ultrasound and was told that he had "a blood clot or obstruction at the spleen". Patient is telling me he was then sent home and got worse. Patient denies any injury to the area. He denies chest pain, difficulty breathing, vomiting, passing out. He reports that he is being treated for pneumonia with Levaquin and Flagyl, he denies any other daily medications, only reported past medical history is hepatitis C, he smokes but he denies alcohol or recreational drugs. TRAVEL OUTSIDE OF THE [place] IN LAST 30 DAYS: No - Related Data Allergies/Adverse Reactions: No Known Allergies Allergy (Unverified 11/26/17 10:46) Past Medical History - General Information source: Patient - Social History Smoking Status: Never Smoker Frequency of alcohol use: None Drug Abuse: None Lives with: Family Family History: Reviewed & Not Pertinent Renal/ Medical History: Denies: Hx Peritoneal Dialysis GI Medical History: Reports: Hx Hepatitis - Hepatitis C Psychiatric Medical History: Comment Only: Hx Depression - anxiety Infectious Medical History: Reports: Hx Hepatitis - Hepatitis C. Denies: Hx HIV Surgical Hx: Negative Review of Systems - Review of Systems Constitutional: No symptoms reported EENT: No symptoms reported Cardiovascular: No symptoms reported Respiratory: No symptoms reported Gastrointestinal: See HPI Genitourinary: No symptoms reported Male Genitourinary: No symptoms reported Musculoskeletal: No symptoms reported Skin: No symptoms reported Hematologic/Lymphatic: No symptoms reported Neurological/Psychological: No symptoms reported Physical Exam - Vital signs Vitals: Temp Pulse Resp BP Pulse Ox 98.4 F 90 20 138/85 H 97 12/07/17 21:34 12/07/17 21:34 12/07/17 21:34 12/07/17 21:34 12/07/17 21:34 - General General appearance: Alert In distress: None - patient appears mildly uncomfortable but does not appear to be in distress - HEENT Head: Normocephalic, Atraumatic Eyes: Normal Conjunctiva: Normal Extraocular movements intact: Yes Eyelashes: Normal Pupils: PERRL Mouth/Lips: Normal Mucous membranes: Normal Pharynx: Normal Neck: Normal - Respiratory Respiratory status: No respiratory distress Breath sounds: Normal. No: Decreased air movement, Wheezing - Cardiovascular Rhythm: Regular. No: Tachycardia Heart sounds: Normal auscultation, S1 appreciated, S2 appreciated Normal capillary refill: Yes - Abdominal Inspection: Normal Tenderness: Tender - tender generally in the mid to left upper abdomen; no specific epigastric or RUQ tenderness, lower abdomen benign Organomegaly: Splenomegaly - Back Back: Normal, Nontender. No: Tender - Extremities General upper extremity: Normal inspection, Nontender, Normal strength, Normal temperature General lower extremity: Normal inspection, Nontender, Normal strength, Normal temperature - Neurological Neuro grossly intact: Yes Cognition: Normal Orientation: AAOx4 [place] Coma Scale Eye Opening: Spontaneous [place] Coma Scale Verbal: Oriented [place] Coma Scale Motor: Obeys Commands [place] Coma Scale Total: 15 Speech: Normal Cranial nerves: Normal Cerebellar coordination: Normal Motor strength normal: LUE, RUE, LLE, RLE Sensory: Normal - Skin Skin Temperature: Warm Skin Moisture: Dry Skin Color: Normal Course - Re-evaluation Re-evalutation: CBC, chemistry generally unremarkable. PTT is elevated as expected with hepatitis C. CTA was performed to evaluate splenic infarction, this does show 2 areas suggesting splenic infarction, no abscess, no free air or blood, no acute findings otherwise other than continued pneumonia. Patient has Levaquin and Flagyl pills here and reports he is taking them. Discussed with Dr. De. Recommendation is for surgical consult for patient potentially following up outpatient. He does not have any abnormal vital signs, his lab work is otherwise unremarkable, his pain is easily managed with pain medication, and there is no clot causing the infarction that is seen on the CTA. Recommendation will be for surgical office follow-up for additional evaluation if pain continues, pain medication, strict return precautions including severe pain, fever, etc. no anticoagulation recommended because there does not appear to be a clot source, in addition to this patient already has elevated PTT secondary to hepatitis C. Unknown source of possible autoinfarction. He is to continue antibiotics. I called and spoke with Dr. Araujo, discussed patient details, recommendation is for patient to follow-up in the clinic with return precautions. I discussed in detail with patient and significant other, they state satisfaction and agreement with plan. - Vital Signs Vital signs: Temp Pulse Resp BP Pulse Ox 98.6 F 90 15 117/87 H 97 12/08/17 02:52 12/07/17 21:34 12/08/17 02:52 12/08/17 02:52 12/08/17 02:52 - Laboratory Result Diagrams: 12/07/17 23:10 12/07/17 23:10 Laboratory results interpreted by me: 12/07/17 12/07/17 23:10 23:10 Hgb 11.9 L Hct 34.9 L MCV 79 L MCH 26.8 L RDW 17.1 H APTT 41.0 H Discharge - Discharge Clinical Impression: Splenic infarct Abdominal pain Qualifiers: Abdominal location: left upper quadrant Qualified Code(s): R10.12 - Left upper quadrant pain Condition: Stable Disposition: HOME, SELF-CARE Additional Instructions: Your imaging does show 2 areas of splenic infarct as we discussed, this needs to be followed, please follow-up in the clinic referral, call the number listed to set up this close follow-up. Take pain medication as prescribed if needed, continue your antibiotics. Return if you worsen including severe pain, vomiting , passing out, fever 100.4 or greater, or any other concerning or worsening symptoms. Prescriptions: Morphine Sulfate [Morphine Ir 15 Mg Tablet] 15 mg PO Q4HP PRN #20 tablet PRN Reason: Referrals: CARMEL ARAUJO MD [ACTIVE STAFF] - 12/10/17
[2017-12-07] MEDS ORDERED: FENTANYL CITRATE INJ/PF 100 MCG/2 ML AMPUL IV ONE (22:52)
[2017-12-07 23:52] LABS: ABSOLUTE EOSINOPHILS # (AUTO) 0.2 10^3/uL (0.0-0.6); ABSOLUTE MONOCYTES (AUTO) 0.7 10^3/uL (0.1-1.4); BASOPHILS % (AUTO) 0.5 % (0-2); EOSINOPHILS % (AUTO) 3.8 % (0-6); HEMATOCRIT 34.9 % (37.9-51.0); HEMOGLOBIN 11.9 g/dL (13.5-17.0); LYMPHOCYTES % (AUTO) 16.3 % (13-45); MEAN CORPUSCULAR HEMOGLOBIN 26.8 pg (27.0-33.4); MEAN CORPUSCULAR VOLUME 79 fl (80-97); PLATELET COUNT 230 10^3/uL (150-450); RED BLOOD COUNT 4.43 10^6/uL (4.35-5.55); RED CELL DISTRIBUTION WIDTH 17.1 % (11.5-14.0); SEGMENTED NEUTROPHILS % (AUTO) 68.4 % (42-78); TOTAL CELLS COUNTED % (AUTO) 100 %; WHITE BLOOD COUNT 5.9 10^3/uL (4.0-10.5)
[2017-12-08 00:04] LABS: ALANINE AMINOTRANSFERASE 31 U/L (21-72); ALBUMIN 3.5 g/dL (3.5-5.0); ALKALINE PHOSPHATASE 84 U/L (38-126); ANION GAP 13 (5-19); ASPARTATE AMINO TRANSFERASE 25 U/L (17-59); BILIRUBIN,DIRECT 0.2 mg/dL (0.0-0.4); BILIRUBIN,TOTAL 0.2 mg/dL (0.2-1.3); BLOOD UREA NITROGEN 14 mg/dL (7-20); CALCIUM 9.3 mg/dL (8.4-10.2); CARBON DIOXIDE 26 mmol/L (22-30); CHLORIDE 104 mmol/L (98-107); GLUCOSE 104 mg/dL (75-110); POTASSIUM 4.5 mmol/L (3.6-5.0); SODIUM 142.6 mmol/L (137-145); TOTAL PROTEIN 7.4 g/dL (6.3-8.2)
[2017-12-08 00:25] LABS: INTERNATIONAL RATION (INR) 1.02; PROTHROMBIN TIME 13.9 SEC (11.4-15.4)
--- NOTE | 2017-12-08 01:38 | RADIOLOGY REPORT (SQ) ---
EXAM DESCRIPTION: CTA ABDOMEN/PELVIS W WO (accession [id number]), CTA CHEST (accession [id number]) CLINICAL HISTORY: 51 years Male, abd/back pain, also eval spleen COMPARISON: US 4..18. CR chest November 26, 2017. CT abdomen pelvis, November 26, 2017. TECHNIQUE: IV contrast. Coronal and sagittal reformat. This exam was performed according to our departmental dose-optimization program, which includes automated exposure control, adjustment of the mA and/or kV according to patient size and/or use of iterative reconstruction technique. FINDINGS: Moderate consolidation of the right upper lobe consistent with prior radiograph from November 26, 2017. Likely calcified granuloma the left upper lobe measures 0.5 cm. Severe splenomegaly with splenic index of 2118 including two areas of diminished perfusion measuring 7 cm anteriorly at its mid aspect and 4 cm laterally at its superior pole. Mild L5-S1 disc desiccation. 0.5 cm degenerative L5 retrolisthesis. Mild increased T11 vertebral sclerosis. Atherosclerosis. 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 CTA appearance of the chest, abdomen, and pelvis is otherwise unremarkable. No pulmonary embolus and no right ventricular strain. No aortic dissection. Great vessels of the aortic arch, SMA, and renal arteries appear patent. Inferior neck, axillae, mediastinum, airway, heart, liver, gallbladder, pancreas, adrenals, renal system, gastrointestinal tract, pelvic organs, lymphatics, vasculature, and musculoskeleton appear otherwise unremarkable. IMPRESSION: 1. Right upper lobar pneumonia. Recommend CR/CT surveillance including at 7-12 weeks following initiation of clinically warranted therapy. 2. Severe splenomegaly with two areas of diminished attenuation and mild T11 vertebral sclerosis suggest ischemia/infarct. 3. No acute CTA abnormality of the arterial system.
[2017-12-08 01:45] LABS: URINE AMPHETAMINES SCREEN NEGATIVE; URINE BARBITURATES SCREEN NEGATIVE; URINE BENZODIAZEPINES SCREEN NEGATIVE; URINE COCAINE SCREEN NEGATIVE; URINE MARIJUANA (THC) SCREEN NEGATIVE; URINE METHADONE SCREEN NEGATIVE; URINE PHENCYCLIDINE SCREEN NEGATIVE
[2017-12-08 02:57] VITALS: BP 117/87
--- NOTE | 2017-12-08 08:22 | EKG REPORT ---
SEVERITY:- BORDERLINE ECG - SINUS ARRHYTHMIA, RATE 60-84 PROBABLE LEFT ATRIAL ABNORMALITY : Confirmed by: German Pickard MD 08-Dec-2017 08:22:08
== END 2017-12-08 03:04 | disposition home or self-care (01) ==
LOC: ER 21:19
DX: D73.5 Infarction of spleen (principal); R10.12 Left upper quadrant pain; Z86.19 Personal history of other infectious and parasitic diseases
CPT/HCPCS: 93005; 99284; 96374; 96375; 36415; 85025; 85610; 85730; 80053; 80307; 71275; 74174; 93010; J3010; J2405

== ENCOUNTER 2017-12-13 03:46 | Emergency (ER) | payer OTHER ==
--- NOTE | 2017-12-13 04:54 | ER Document Report ---
ED General - General Stated Complaint: ABDOMINAL PAIN Time Seen by Provider: 12/13/17 04:01 Notes: Patient to the emergency department via EMS for evaluation of abdominal pain. Apparently EMS listed patient twice. Convince him to come the second time. In route was received [place]. Patient states the pain was resolved when he got here. When I evaluated patient patient was saying that he wanted to go home. Patient was getting in an argument with his . States that he does not want any tests done. Does not want an x-ray. Wants to leave. became angry and stormed out of the room. Tried to convince patient to let me do a workup on him but he refused. TRAVEL OUTSIDE OF THE [place] IN LAST 30 DAYS: No - HPI Onset: Just prior to arrival - Related Data Allergies/Adverse Reactions: No Known Allergies Allergy (Unverified 11/26/17 10:46) Past Medical History - General Information source: Patient - Social History Smoking Status: Former Smoker Frequency of alcohol use: Occasional Drug Abuse: None Lives with: Spouse/Significant other Family History: Reviewed & Not Pertinent Renal/ Medical History: Denies: Hx Peritoneal Dialysis GI Medical History: Reports: Hx Hepatitis - Hepatitis C Psychiatric Medical History: Comment Only: Hx Depression - anxiety Infectious Medical History: Reports: Hx Hepatitis - Hepatitis C. Denies: Hx HIV Review of Systems - Review of Systems Constitutional: No symptoms reported EENT: No symptoms reported Cardiovascular: No symptoms reported Respiratory: No symptoms reported Gastrointestinal: Abdominal pain, Nausea, Vomiting, Constipation Genitourinary: No symptoms reported Male Genitourinary: No symptoms reported Musculoskeletal: No symptoms reported Skin: No symptoms reported Hematologic/Lymphatic: No symptoms reported Neurological/Psychological: No symptoms reported Physical Exam - Vital signs Interpretation: Normal - General General appearance: Appears well, Alert - HEENT Head: Normocephalic, Atraumatic Eyes: Normal Pupils: PERRL - Respiratory Respiratory status: No respiratory distress Chest status: Nontender Breath sounds: Normal Chest palpation: Normal - Cardiovascular Rhythm: Regular Heart sounds: Normal auscultation Murmur: No - Abdominal Inspection: Normal Distension: No distension Bowel sounds: Normal Tenderness: Nontender. No: Guarding, Rebound Organomegaly: No organomegaly - Back Back: Normal, Nontender - Extremities General upper extremity: Normal inspection, Nontender, Normal color, Normal ROM , Normal temperature General lower extremity: Normal inspection, Nontender, Normal color, Normal ROM , Normal temperature, Normal weight bearing. No: Tracey's sign - Neurological Neuro grossly intact: Yes Cognition: Normal Orientation: AAOx4 [place] Coma Scale Eye Opening: Spontaneous [place] Coma Scale Verbal: Oriented [place] Coma Scale Motor: Obeys Commands [place] Coma Scale Total: 15 Speech: Normal Motor strength normal: LUE, RUE, LLE, RLE Sensory: Normal - Psychological Associated symptoms: Normal affect, Normal mood - Skin Skin Temperature: Warm Skin Moisture: Dry Skin Color: Normal Course - Re-evaluation Re-evalutation: 12/13/17 05:21 Try to convince patient stable patient refused. Patient left AMA. Discharge - Discharge Clinical Impression: Abdominal pain Qualifiers: Abdominal location: generalized Qualified Code(s): R10.84 - Generalized abdominal pain Condition: Good Disposition: HOME, SELF-CARE Instructions: Abdominal Pain ([facility]) Additional Instructions: You have decided to leave without getting any lab test done. This is AGAINST MEDICAL ADVICE. Please follow-up with your regular doctor. If your symptoms are getting worse it is important to return.
== END 2017-12-13 04:53 | disposition left against medical advice (07) ==
LOC: ER 03:46
DX: K59.00 Constipation, unspecified (principal); R11.2 Nausea with vomiting, unspecified; R10.84 Generalized abdominal pain; Z87.891 Personal history of nicotine dependence; Z53.20 Procedure and treatment not carried out because of patient's decision for unspecified reasons
CPT/HCPCS: 99284

== ENCOUNTER → 2018-02-12 | Outpatient (CLI) | payer OTHER ==
[2018-02-12 18:22] LABS: ALANINE AMINOTRANSFERASE 20 U/L (21-72); ALKALINE PHOSPHATASE 72 U/L (38-126); ANION GAP 12 (5-19); ASPARTATE AMINO TRANSFERASE 22 U/L (17-59); BILIRUBIN,DIRECT 0.3 mg/dL (0.0-0.4); BILIRUBIN,TOTAL 0.5 mg/dL (0.2-1.3); BLOOD UREA NITROGEN 14 mg/dL (7-20); CALCIUM 9.2 mg/dL (8.4-10.2); CARBON DIOXIDE 23 mmol/L (22-30); CHLORIDE 109 mmol/L (98-107); GLUCOSE 112 mg/dL (75-110); POTASSIUM 3.7 mmol/L (3.6-5.0); SODIUM 144.1 mmol/L (137-145); TOTAL PROTEIN 7.7 g/dL (6.3-8.2)
== END ==
LOC: OD 17:04
PROVIDERS: ATTEND Internal Medicine Hematology & Oncology
DX: D70.9 Neutropenia, unspecified (principal); B19.20 Unspecified viral hepatitis C without hepatic coma
CPT/HCPCS: 36415; 80053